=== PATIENT | male | born 1950 | race Caucasian/White ===

== ENCOUNTER → 2022-07-22 11:49 | Outpatient (CLI) | payer MEDICARE, OTHER, SELFPAY ==
--- NOTE | 2022-07-22 | DI.MRI.S_ITS ---
PROCEDURE: MR CERVICAL SPINE WO CON INDICATIONS: Spondylosis without myelopathy or radiculopathy, cervical region TECHNIQUE: Noncontrast sagittal T1 spin echo and T2 fast spin echo, sagittal STIR, foraminal oblique sagittal T2 fast spin echo, and axial gradient echo or T2 fast spin echo through the cervical spine. COMPARISON: [facility], CR, XR CERVICAL SPINE WITH FLEXION EXTENSION, 07/15/2022, 7:48. [facility], CT, CT CERVICAL SPINE WITHOUT CONTRAST, 07/11/2022, 7:46. FINDINGS: Image quality: Excellent. Alignment and Curvature: There is exaggerated cervical curvature. There is trace anterolisthesis of C3 on C4, C4 on C5. Bone Marrow: Marrow demonstrates normal overall signal. Spinal Cord: Visualized spinal cord has normal size and signal. No cerebellar tonsillar herniation. Paraspinous Soft Tissues: No paravertebral masses. Prevertebral soft tissues are normal in thickness. Discs: Multilevel moderate to severe disc desiccation. C2-C3: No disc bulge or spinal stenosis. Minimal bilateral foraminal narrowing with uncovertebral hypertrophy C3-C4: Mild disc bulge with otva-ky-xqovhsec spinal stenosis. Severe right and moderate to severe left foraminal narrowing with uncovertebral hypertrophy. C4-C5: Mild disc bulge with moderate spinal stenosis. Moderate to severe bilateral foraminal narrowing with uncovertebral hypertrophy. C5-C6: Mild disc bulge with gmii-yw-sexywqba spinal stenosis. Severe right and moderate to severe left foraminal narrowing with uncovertebral hypertrophy. C6-C7: Mild disc bulge with moderate spinal stenosis. Severe right and moderate left foraminal narrowing with uncovertebral hypertrophy. C7-T1: Minimal disc bulge without spinal stenosis. Xmaj-ap-wnmeuusb bilateral foraminal narrowing with uncovertebral hypertrophy. IMPRESSION: Multilevel disc bulges. Multilevel foraminal narrowing severe at C3-4, C5-6 and C6-7 secondary to uncovertebral arthropathy. Multilevel spinal stenosis most severe at C4-5 and C6-7 secondary to disc bulge. Dictated by: Marilou Huitron M.D. on 07/22/2022 at 16:29 Approved by: Marilou Huitron M.D. on 07/22/2022 at 16:32
== END ==
PROVIDERS: Referring Provider Orthopaedic Surgery Orthopaedic Surgery of the Spine; Visit Provider Orthopaedic Surgery Orthopaedic Surgery of the Spine
DX: M47.812 Spondylosis without myelopathy or radiculopathy, cervical region (principal); M48.02 Spinal stenosis, cervical region; M50.31 Other cervical disc degeneration, high cervical region
CPT/HCPCS: 72141

== ENCOUNTER → 2022-08-15 09:27 | Outpatient (CLI) | payer MEDICARE, OTHER, SELFPAY ==
[2022-08-15 10:53] LABS: Add Manual Diff / Slide Review NO; Basophils Absolute Auto 0 /uL (0-100); Basophils Percent Auto 0.7 % (0-2); Eosinophils Absolute Auto 200 /uL (0-450); Eosinophils Percent Auto 3.1 % (2-4); Hematocrit 43.2 % (41-53); Lymphocytes Absolute Auto 1900 /uL (1100-4500); Lymphocytes Percent Auto 27.9 % (25-40); Mean Corpuscular HGB Conc 34.7 % (30-36); Mean Corpuscular Hemoglobin 31.3 PG (26-34); Mean Corpuscular Volume 90.3 fL (80-100); Monocytes Absolute Auto 800 /uL (0-900); Monocytes Percent Auto 11.4 % (3-14); Neutrophils Absolute Auto 3800 /uL (1500-7000); Neutrophils Percent Auto 56.9 % (50-75); Platelet Count 198 X10^3/uL (150-400); Red Blood Cell Count 4.79 X10^6/uL (4.5-5.9); Red Cell Distribution Width 13.2 % (11.6-14.8); White Blood Cell Count 6.7 X10^3/uL (4.5-11.0)
[2022-08-15 11:08] LABS: BUN Creatinine Ratio 16.5 (6-22); Blood Urea Nitrogen 19 mg/dL (9-20); Calcium 9.2 mg/dL (8.4-10.2); Carbon Dioxide 30 mmol/L (22-32); Chloride 104 mmol/L (98-107); Estimated Glomerular Filt Rate > 60 mL/min (>60); Glucose 118 mg/dL (80-110); HEMOLYSIS < 15 (0-50); Potassium 4.8 mmol/L (3.4-5.1); Sodium 139 mmol/L (137-145)
== END ==
PROVIDERS: Referring Provider Orthopaedic Surgery Orthopaedic Surgery of the Spine; Visit Provider Orthopaedic Surgery Orthopaedic Surgery of the Spine
DX: Z01.818 Encounter for other preprocedural examination (principal); Z01.812 Encounter for preprocedural laboratory examination
CPT/HCPCS: 36415; 80048; 85025; 93005

== ENCOUNTER 2022-09-15 11:21 | Inpatient (IN) | payer MEDICARE, OTHER, SELFPAY ==
[2022-09-10 11:47] VITALS: BMI 31.3
[2022-09-15] VITALS (10 sets, daily range): BP systolic 138–162; BP diastolic 65–89; PULSE 77–94; RESP 12–21; TEMP 36.2–36.5; O2SAT 90–98; BMI 31.3
[2022-09-15] MEDS: ACETAMINOPHEN 325 MG TABLET 975 MG PO (11:42)
[2022-09-15] MEDS: GABAPENTIN 600 MG TABLET PO (11:43)
[2022-09-15] MEDS: LACTATED RINGERS 1,000 ML 42 ML IV ×2 (11:44→15:22)
[2022-09-15 11:57] LABS: COVID19 -Nasal RAPID Negative (Negative)
--- NOTE | 2022-09-15 12:28 | PM.PREOP ---
Pre-operative Note COVID-19 COVID-19 status: Negative Result date/Date tested (Pos, Neg/Pending): 09/14/22 Criteria for continued procedure: Expected advancement of disease process, Possibility delay results in more complex future surgery or treatment, Increased loss of function, Continuing or worsening of significant or severe pain, Deterioration of the patient's condition or overall health and Delay expected to result in less-positive ultimate med/surg outcome Interval Note History & Physical reviewed/Exam performed by Physician: Yes Changes to H&P: No
[2022-09-15] MEDS: CEFAZOLIN 2 GM/100 ML PREMIX 100 ML IV ×2 (13:10→21:15)
--- NOTE | 2022-09-15 13:34 | SUR.OPER ---
Supine on padded OR bed, head on gel donut, arms padded and tucked at sides, papoose with draw sheet and secured by towel clamps, legs uncrossed, safety belt at thigh. Shoulders and head distracted with tape per Dr. Johnson
[2022-09-15] MEDS: BUPIVACAINE 0.25% INJ (13:58)
[2022-09-15] MEDS: EPINEPHRINE 0.3 MG INJ (13:58)
--- NOTE | 2022-09-15 16:20 | DI.RAD.S_ITS ---
PROCEDURE: XR CERVICAL SPINE 2V OR 3V INDICATIONS: C4-5, C5-6, C6-7 ACDF TECHNIQUE: 2 intraoperative fluoroscopic view(s) of the cervical spine were acquired. COMPARISON: None. FINDINGS: Intraoperative fluoroscopic images of cervical spine shows anterior fusion at C4-5 through C6-7 levels . IMPRESSION: Fluoro guidance was provided intraoperatively for anterior fusion at C4-5 through C6-7 levels. Dictated by: Rocky Hannah M.D. on 09/15/2022 at 16:37 Approved by: Rocky Hannah M.D. on 09/15/2022 at 16:38
--- NOTE | 2022-09-15 16:28 | PM.OP.1 ---
Operative Date/Time/Diagnoses Date of procedure: 09/15/22 Time of procedure: 13:00 Pre-op diagnosis: 1. C4-5, C5-6, C6-7 spinal stenosis 2. C4-5, C5-6, C6-7 spondylosis with radiculopathy Post-op diagnosis: same Procedure & Clinicians Procedure: 1. C4-5 C5-6 C6-7 anterior cervical diskectomy and fusion 2. C4-5 C5-6 C6-7 anterior interbody cage placement 3. C4-5 C5-6 C6-7 anterior instrumentation with plate and screw placement in C4-C5-C6 and C7 vertebrae 4. Utilization of microsurgical technique and operating microscope Same procedure as scheduled: Yes Indications: Patient has been having chronic neck pain and worsening cervical radiculopathy. Patient failed multiple conservative management with worsening pain weakness and numbness in her upper extremity. Patient has been having difficulty performing activity of daily living. After discussing risks benefits of treatment options, patient elected proceed with surgery. Surgeon: Kayla Johnson Irrigation Equipment Installer: Uyen Miguel Click Yes if Unassisted: No Anesthesia Type: General Operative Notes Closure Type: primary Specimen(s): none sent Prosthetic devices, grafts, tissues, transplants, or devices: Globus Extend Plate, Hedron C cages Applied: catheter Estimated Blood Loss (mL): 10 Blood products transfused: none Procedure in detail: Patient was seen in the preoperative area. Risks and benefits of the surgery was discussed with the patient. Operative consent was obtained and placed in the chart. Patient was then taken to the operative room. Prophylactic antibiotic was given less than 0.5 hr prior to skin incision. General anesthesia was administered. Patient was placed into a supine position on her radiolucent table. Bilateral shoulders were taped down to allow proper C-arm imaging. Anterior cervical area was prepped and draped in a sterile fashion. Time-out was performed at this time. Using lateral C-arm imaging, the level between C4 and C7 was identified and marked on patient's neck. A oblique incision from midline towards medial border of sternocleidomastoid muscle was made. The platysma muscle was incised in line with skin incision. Metzenbaum scissor was used to develop the plane between the medial border of sternocleidomastoid and the strap muscles medially. The carotid sheath and its contents were identified and protected behind the hand-held retractor during the entire case. The plane between the carotid sheath and strap muscles was developed with Metzenbaum scissors. Dissection was made down to the level of the anterior cervical fascia. Longus colli muscle was incised on the anterior aspect of vertebral bodies bilaterally from C4-C7. Spinal needle was placed into the C4-5 disc space and confirmed with lateral C-arm imaging. Self-retaining retractors were then placed protecting the carotid sheath the sheath laterally and the esophagus medially while exposing the surgical field between C4-C7 vertebrae. Using microsurgical technique and operative microscope, anterior cervical diskectomy was performed at C4-5 C5-6 and C6-7 level. This was done by removing the disc material, removing the anterior and posterior osteophytes posterior longitudinal ligaments along with performing bilateral foraminotomies at all 3 levels. Patient was found to have severe central and foraminal stenosis at all 3 levels. Patient's stenosis was fully decompressed after decompression was completed. After the diskectomy was completed, 3 anterior interbody cages were obtained. The cages were packed with globus DBM bone grafting material. One cage each along with the bone grafting material was then packed into the interbody spaces from C4-C7 with one cage into each interbody level. Patient had large anterior osteophytes at C4, C5-C6 and C7 vertebrae. Large osteophytes was removed using Leksell rongeur in order to place anterior cervical plate. After the cages were placed, the anterior cervical plate was stabilized to the C4-C7 vertebrae using 2 screws at each each level. Total 8 screws were placed. After confirming placement of the hardware with AP and lateral C-arm imaging, the screws were locked into the plate using the locking mechanism and torque limiting screwdriver. After the hardware was placed and confirmed with AP and lateral C-arm imaging, the wound was irrigated with sterile normal saline. Hemostasis was accomplished using bipolar cautery. Carotid sheath contents and the esophagus was inspected and visualized and identified to be well protected throughout the entire case prior to closure. Platysma muscle and the subcutaneous tissue was closed with 2-0 Vicryl. The skin was closed with 4-0 Monocryl and Steri-Strips. Patient tolerated the procedure well. Patient was transferred recovery room in stable condition. There were no complications. Complications: none Post-operative Condition: stable Disposition: PACU Plan for aftercare: Admit to inpatient hospital
[2022-09-15] MEDS: MELOXICAM 7.5 MG TABLET 15 MG PO (18:14)
[2022-09-15] MEDS: LACTATED RINGERS 1,000 ML 125 ML IV (18:15)
--- NOTE | 2022-09-15 18:50 | PC.NURSE ---
Patient is resting comfortably. He has a dressing to his anterior cervical neck region that is cdi, offered pain medication but he refuses. Given meloxicam, explained to patient that this is an antiinflammatory and he was good with taking this. He is on LR at 125cc/hr and tolerating this well. When he converses his throat does sound slightly soar. Patient lives in [facility] and has a daughter that lives close. He decided to have his surgery done here. He refused dinner and states that he is not hungry. SCDs intact and patient is comfortable.
[2022-09-15] MEDS: MAGNESIUM OXIDE 400 MG TABLET PO (20:56)
[2022-09-15] MEDS: ACETAMINOPHEN 325 MG TABLET 650 MG PO (20:56)
[2022-09-15] MEDS: DOCUSATE 100 MG CAPSULE PO (20:56)
[2022-09-15] MEDS: LOSARTAN 50 MG TABLET PO (20:56)
[2022-09-15] MEDS: SENNOSIDES 8.6 MG TABLET 17.2 MG PO (20:56)
[2022-09-16 00:53] VITALS: BP 119/68; PULSE 95; RESP 18; TEMP 36.4; O2SAT 94
[2022-09-16] MEDS: LACTATED RINGERS 1,000 ML 125 ML IV (03:02)
[2022-09-16 04:58] VITALS: BP 119/72; PULSE 74; RESP 18; TEMP 36.5; O2SAT 96
[2022-09-16] MEDS: CEFAZOLIN VIAL 2 GM in SODIUM CHLORIDE 0.9% 100 ML IV (05:09)
--- NOTE | 2022-09-16 07:45 | P.PN_ITS ---
Subjective Subjective Date Patient Seen: 09/16/22 Time Patient Seen: 07:45 Interval history: Patient's pain is mild. Denies fever or chills. No nausea or vomiting. Patient denies any shortness of breath or difficulty swallowing. Exam Vital Signs (past 8 hours): - 09/16/22 00:53 09/16/22 04:58 Temperature 97.6 F 97.7 F Pulse Rate 95 H 74 Respiratory Rate 18 18 Blood Pressure 119/68 119/72 Pulse Oximetry 94 96 Oxygen Flow Rate 0 0 Oxygen Delivery Method Room Air Oxygen Flow Rate 0 Narrative Exam Narrative: 72-year-old male resting comfortably in bed in no apparent distress. Cervical collar in place. Motor functions intact distal bilateral upper extremities. Sensation grossly intact to light touch bilateral upper extremities. Const General: cooperative and comfortable Nutritional Appearance: well nourished Orientation: alert HENMT Head: normal to inspection Resp Effort & Inspection: normal respiratory effort and able to speak in complete sentences Objective Labs Labs: Laboratory Results - last 24 hr 09/15/22 11:20 SARS-CoV-2 (PCR) Negative [facility] Medical History Anxiety Borderline diabetic Elevated cholesterol History of COVID-19 HTN (hypertension) Neck pain Skin cancer Spinal stenosis Spondylosis without myelopathy or radiculopathy, cervical region Surgical History Hx of arthroscopy of right knee Hx of bilateral cataract extraction Hx of repair of right rotator cuff Hx of umbilical hernia repair Social History household members: none Smoking Status: Never smoker alcohol intake: current Assessment & Plan Post-op Postoperative Procedures: Procedures Operation Date: 09/15/22 13:45 Actual Procedure Side Surgeon p C4-5, C5-6, C6-7 ACDF w. anterior instrumentation Kayla Johnson MD Postoperative day: 1 Postoperative status: doing well Postoperative status narrative: Progressing as expected Postoperative plan: routine post-op care Postoperative plan narrative: Cervical collar for comfort Mobilize with physical therapy, limit bending, lifting, twisting Multimodal pain management Discontinue Henriquez Likely home later this morning pending physical therapy. Quality VTE Deep Vein Thrombosis/Pulmonary Embolism Present on Admission: No
--- NOTE | 2022-09-16 07:45 | PC.NURSE ---
Patient is alert and oriented x4, he denies pain. Just a soar throat. We will be taking his hercules catheter out shortly and he has already been saline locked. Dressing to anterior throat is cdi. 0 drainage noted. Denies numbness or tingling.
[2022-09-16 08:14] VITALS: BP 138/75; PULSE 74
[2022-09-16] MEDS: LOSARTAN 50 MG TABLET PO (08:14)
[2022-09-16] MEDS: DOCUSATE 100 MG CAPSULE PO (08:15)
[2022-09-16 08:48] VITALS: BP 138/75; PULSE 81; RESP 18; TEMP 36.7; O2SAT 94
--- NOTE | 2022-09-16 08:58 | OT.IP.EVAL ---
Current Diagnoses Spondylosis without myelopathy or radiculopathy, cervical region (09/15/22) Spinal stenosis, cervical region (09/15/22) Surgery Performed Operation Date: 09/15/22 13:45 Actual Procedures p C4-5, C5-6, C6-7 ACDF w. anterior instrumentation - Kayla Johnson MD Past Medical History (Last Reviewed 09/16/22 @ 07:46 by Abdoul Dudley PA-C) Anxiety Borderline diabetic Elevated cholesterol History of COVID-19 HTN (hypertension) Neck pain Skin cancer Spinal stenosis Spondylosis without myelopathy or radiculopathy, cervical region Surgical History (Last Reviewed 09/16/22 @ 07:46 by Abdoul Dudley PA-C) Hx of arthroscopy of right knee Hx of bilateral cataract extraction Hx of repair of right rotator cuff Hx of umbilical hernia repair Occupational Therapy Inpatient Evaluation/Re-Eval M1 PT/OT-IP Prior Functional Status Start: 09/16/22 09:30 Freq: NEEDED Status: Active Protocol: Document 09/16/22 08:58 [facility] (Rec: 09/16/22 09:42 [facility] [id number]) Medical Review Prior Functional Status Communication independent Mobility and Gait Pt walked without a device. Activities of Daily Living and IADL's Pt able to do with increased time. Social History Household Members none Living Arrangements Other Number of Floors (Floors) One Floor Number of Stairs To Enter/Railing? Pt lives in a motel with no steps to enter. Home Environment Standard Height Toilet,Tub/ Shower Home Equipment Shower Seat with Backrest,Hand Held Shower,Grab Bars Near Toilet,Grab Bars In Shower M2 OT-IP Current Condition Start: 09/16/22 09:30 Freq: Status: Active Protocol: Document 09/16/22 08:58 [facility] (Rec: 09/16/22 09:42 [facility] [id number]) Occupational Therapy Current Condition Current Condition Evaluation Date 09/16/22 Treatment Diagnosis S/p C4-5, c5-6, c6-7 ACDF Diagnosis Onset Date 09/15/22 Post Operative Precautions Cervical Spine Precautions Soft Collar for Comfort,Soft Collar at all Times,No Heavy Lifting,Log Roll M3 OT- IP Subjective and Pain Start: 09/16/22 09:30 Freq: Status: Active Protocol: Document 09/16/22 08:58 [facility] (Rec: 09/16/22 09:42 [facility] [id number]) OT- Subjective Occupational Therapy Visit Type Type Initial Evaluation Visit Start Time 08:58 Visit Stop Time 09:22 Occupational Therapy Visit Comments Patient Comments Pt agreed to get up for OT eval. Patient/Caregiver Goals To go home. OT Pain Assessment Pain When Pain Assessed During Mobility Pain Present Pain Present Pain Reported Location Neck Intensity 1 Scale Used Numeric (0 - 10) M4 OT- IP ADL's Start: 09/16/22 09:30 Freq: Status: Active Protocol: Document 09/16/22 08:58 [facility] (Rec: 09/16/22 09:42 [facility] [id number]) OT [id number]-[id number] Comments OT Self-Feeding Comments Able to go over swallowing needs after ACDF, to sit upright, eat softer food and information sheet given to the pt. OT ADL-Grooming Comments OT Grooming Comments Pt states to do at home. OT ADL-Oral Care Comments Oral Care Comments Pt states to do at home. OT ADL-Dressing General Eval Lower Body Dressing Ability Standby Assistance Comments OT Dressing Comments Pt able to cross his legs over comfortably to do his socks. OT ADL-Toileting Comments OT Toileting Comments Pt not having to go. OT ADL-Bathing Comments OT Bathing Comments Pt states to shower at home. M5 OT- IP IADL's Start: 09/16/22 09:30 Freq: Status: Active Protocol: Document 09/16/22 08:58 [facility] (Rec: 09/16/22 09:42 [facility] [id number]) OT-Instrumental Activities of Daily Living Home Safety Awareness Awareness of Need for Assistance at Home Good Awareness Ability to Problem Solve Emergency Able to Problem Solve Situations Home Safety Comments Pt has a supportive daughter that lives close by to assist if needed. M6 OT- IP Functional Cognition Start: 09/16/22 09:30 Freq: Status: Active Protocol: Document 09/16/22 08:58 [facility] (Rec: 09/16/22 09:42 [facility] [id number]) Cognitive Factors Limiting Selfcare Function Cognitive Ability Level of Alertness Alert Patient Orientation Name,Age,Birthday,Month,Date, Year,Day of Week,Place, Situation Attention Span Ability Capable of Focused Attention, Capable of Sustained Attention Ability to Follow Commands Able to Follow Multi-Step Commands Cognitive Comments Cognitive Assessment Comments Pt appears intact but tends to move a little too fast and needing cues to slow down. OT- Vision and Hearing OT- Hearing Assessment OT- Hearing Assessment WFL OT- Vision Assessment Visual Acuity Glasses For Reading M7 OT- IP Mobility and Balance Start: 09/16/22 09:30 Freq: Status: Active Protocol: Document 09/16/22 08:58 [facility] (Rec: 09/16/22 09:42 [facility] [id number]) OT- Bed Mobility Assessment Supine to Sit Supine to Sit Assist Standby Assistance OT-Transfer Assessment Sit to and From Stand Sit to and from Stand Standby Assistance Transfers Transfer Ability Standby Assistance Technique Transfer Destination Bed,Chair Transfer Technique Stand Step Pivot Devices Transfer Assistive Devices Gait Belt Comments Mobility Comments Pt needing initial vc for log rolling and initially tends to twist and initiate movement from his head and educated to log to his side first and use of his arms to push himself up to sitting. OT- Balance Assessment Sitting Balance and Reactions Static Sitting Balance Ability Normal Dynamic Sitting Balance Ability Good Standing Balance and Reactions Static Standing Balance Ability Normal Dynamic Standing Balance Ability Good M8 OT- IP Objective Assessments Start: 09/16/22 09:30 Freq: Status: Active Protocol: Document 09/16/22 08:58 [facility] (Rec: 09/16/22 09:42 [facility] [id number]) OT-Muscle Tone Assessment Muscle Tone WNL Yes M9 OT- IP Assessment and Plan Start: 09/16/22 09:30 Freq: Status: Active Protocol: Document 09/16/22 08:58 [facility] (Rec: 09/16/22 09:42 [facility] [id number]) OT Summary Assessment and Plan Potential Rehabilitation Potential Excellent Analytic Complexity at Evaluation Low Summary OT Impairments Pain,Balance,Functional Mobility,Dressing,Toileting, Bathing,Toilet Transfers, Shower Transfers Progress Towards Goals Progressing Toward Goals Assessment Summary Pt low complexity and at this time just getting out of bed and at the end of the session was independent without a device. Pt looking to go home to initially to order food to his motel as will not been able to drive yet . Pt is able to get breakfast at the motel. Pt's Daughter close by to assist as needed. Goals Dressing Goal Independent,Moderate Assistance Bathing Goal Independent Toilet Transfer Goal Independent Shower Transfer Goal Independent Patient/Caregiver Education Goal Demonstrate Post-Op Precautions Days to Meet Goals 1 Frequency of Treatment Frequency Of Treatment Once a Day Treatment Plan OT Treatment Plan ADL Training,Functional Mobility,Patient/Family Education,Discharge Planning Discharge Recommendations OT Discharge Recommendations Home with Assistance Transportation Needs at Discharge Private Vehicle
--- NOTE | 2022-09-16 09:07 | CM.DANOTE ---
DCP: Case received, EMR reviewed and met with patient. Introduced self and role. Was able to obtain information regarding patient's baseline activity status prior to hospitalization, as well as his current living situation. DCP assessment completed with information currently available. Patient is a 72 year old male who admitted yesterday morning to the care of the orthopedic team. PCP: Dr. Rust. Payer: confirmed: Medicare/[facility]. Patient came to the hospital via private vehicle for a surgical procedure. Patient had C4-5 C5-6 C6-7 anterior cervical diskectomy and fusion. Patient has history of spinal stenosis. Met with patient in his room. He is alert and oriented, pleasant. Confirmed that he resides in a motel here in [place], his daughter, Josi Peace, lives nearby. Patient resides in [facility]. He does have a local provider. Stated, he gets plenty of support from daughter, as well as the staff at the motel. He is independent at his baseline. He is planning on returning back to [facility]. P: DCP to continue to follow. He will be working with P.T. Plan is for home when deemed medically stable. Gila Harris RN/Clip Baker Discharge Planning/Care Management CM Discharge Assessment Start: 09/16/22 09:06 Freq: Status: Active Protocol: Document 09/16/22 09:07 (Rec: 09/16/22 09:07 [id number]) Discharge Planning Assessment Assigned Admissions Assistant Gila Harris RN/Clip Baker Advance Directives? No History Provided By Patient,Medical Record Prior Living Arrangements Other Household Members none Independent with ADL's Yes Is patient alert and oriented? Yes Caregiver for Another No Barriers to Discharge No Discharge Plan Home Transportation Arrangement Daughter or may need taxi Referrals Initiated None needed Whiteboard Updated in Patient Room with Yes name and ext. # of Admissions Assistant Review Status In Process Next Review Type Continued Stay Review Pre-Anesthesia Assessment Start: 09/10/22 11:47 Freq: Status: Complete Protocol: Document 09/10/22 11:47 CAB (Rec: 09/10/22 12:30 CAB [id number]) Pre-Anesthesia Assessment Preferred Name Kosta Patient Information Reviewed Via Phone Assessment Assessment Completed With Patient Diagnostic Results BMP/CMP,CBC,EKG Comment Labs/EKG @ [facility] 08/15/22 Primary Care Provider Td Rust Seen Specialist in Last 12 Months Yes Specialist Seen Orthopedist,Other Comment Neuro surgeon Primary Language Israeli Height 5 ft 6.5 in Weight 197 lb Body Mass Index (BMI) 31.3 Hearing Ability Normal Visual Assist Glasses Dentition Type Teeth, Natural Present,Teeth, Missing Barriers to Learning None Hx Anesthesia Reactions No Hx Family Anesthesia Reaction No Hx Malignant Hyperthermia No Hx Blood Transfusions No Anesthesia Review Requested No Auto Winder No alcohol intake current alcohol intake frequency a few times a week Smoking Status Never smoker Substance Use Type does not use Pain Present Pain Reported Musculoskeletal Symptoms Limited Range of Motion,Neck Pain,Radiating Pain into Limb History of Falling (Recent or History of No ) Patient is completely paralyzed or No completely immobile Mental Status Oriented to own ability Is patient on oxygen? No Does patient have PONCE/SOB No Hx Sleep Apnea No Currently Taking a Beta Kumar No Can You Climb a Flight of Stairs Without Yes SOB Hx Chest Pain No Hx SOB No Hx Syncope or Dizziness No Anti-Coagulant Therapy No Has a Rn Nicu No Cardiac Testing No Hx Pacemaker/ICD No Pacemaker Rep Required? 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 Yes Received all doses? No Marital Status Single Lives With none Current Living Arrangements Other Comment Plans to stay in [facility] in [place] after surgery, lives in [facility] Number of Floors (Floors) One Floor Support System Family Does the Patient Have Assistance After Yes Surgery Patient Discharge Plan Description Other Comment Pt advised overnight length of stay per surgeon Additional comment Plans to stay in [facility] in [place] after surgery, lives in [facility] Feels Safe in Current Environment Yes Been Physically Hurt or Threatened By a No Person in Current Environment Do you have thoughts of harming yourself None or others? Are you currently considering suicide? No Do you have a plan to hurt yourself or No Plan others? Do You Have Any Spiritual Beliefs That No May Affect Your HC Choices? Do You Have Any Cultural Practices That No May Affect Your HC Choices? Comment Agnostic Who Can We Speak to About Patient's Care Family, friends Identifying Code for Release of Patient Declines to issue Information Health Care Proxy/Next of Kin Josi (daughter) Health Care Proxy Emergency Contact Name Josi (daughter) Emergency Contact Advance Directives? No Power of Back Shoe Worker No Power of Back Shoe Worker Name Josi (daughter) Power of Back Shoe Worker PAC Instructions Durable medical equipment, Medications to take/avoid, Nasal antibiotic,No ETOH/ petroleum product on skin DOS, NPO,Pre-surgical wash,Sensory aids,Sturdy shoes/comfortable clothes,Do not bring valuables and remove jewelry
--- NOTE | 2022-09-16 11:04 | P.DS_ITS ---
History of Present Illness History of Present Illness Date Patient Seen: 09/16/22 Time Patient Seen: 11:04 Chief complaint: INPT Narrative: See progress note Discharge Providers Provider Date of admission: 09/15/22 11:21 Discharge Date: 09/16/22 Primary care physician: Td Rust Consults: 09/15/22 17:21 Consult to Occupational Therapy Evaluate & Treat Comment: Physician Instructions: Evaluate and treat Consult to Physical Therapy Evaluate & Treat Comment: Physician Instructions: Evaluate and Treat Discharge provider: Abdoul Dudley PA-C Summary Hospital Course Discharge Diagnosis: . C4-5, C5-6, C6-7 spinal stenosis 2. C4-5, C5-6, C6-7 spondylosis with radiculopathy Hospital Course: 1.? C4-5 C5-6 C6-7 anterior cervical diskectomy and fusion 2.? C4-5 C5-6 C6-7 anterior interbody cage placement 3.? C4-5 C5-6 C6-7 anterior instrumentation with plate and screw placement in C4-C5-C6 and C7 vertebrae 4.? Utilization of microsurgical technique and operating microscope Same procedure as scheduled: Yes Indications: Patient has been having chronic neck pain and worsening cervical radiculopathy. Patient failed multiple conservative management with worsening pain weakness and numbness in her upper extremity.? Patient has been having difficulty performing activity of daily living.? After discussing risks benefits of treatment options, patient elected proceed with surgery. Surgeon: Kayla Johnson [employer] Supervisor: Uyen Miguel Click Yes if Unassisted: No Anesthesia Type: General Operative Notes Closure Type: primary Specimen(s): none sent Prosthetic devices, grafts, tissues, transplants, or devices: Globus Extend Plate, Hedron C cages Applied: catheter Estimated Blood Loss (mL): 10 Blood products transfused: none Patient admitted to the hospital for the above-mentioned procedure. Patient underwent cervical fusion September 15, 2022. Patient back in his room recovering well as in stable condition. Henriquez catheter removed this morning. Patient has worked with physical therapy and did well. Patient has somebody at home available to assist him. Patient may be discharged home today after he is able to urinate on his own. Status at Discharge Cognitive/behavioral status at discharge: at baseline, oriented Functional status at discharge: independent ambulation Overall status at discharge: patient is progressing back to baseline Exam Vital Signs (past 8 hours): - 09/16/22 04:58 05/02/23 08:14 09/16/22 08:48 Temperature 97.7 F 98.1 F Pulse Rate 74 74 81 Respiratory Rate 18 18 Blood Pressure 119/72 138/75 138/75 Pulse Oximetry 96 94 Oxygen Flow Rate 0 0 Oxygen Delivery Method Room Air Oxygen Flow Rate 0 Narrative Exam Narrative: See progress note Objective Labs Labs: Laboratory Results - last 24 hr 09/15/22 11:20 SARS-CoV-2 (PCR) Negative [facility] Medical History Anxiety Borderline diabetic Elevated cholesterol History of COVID-19 HTN (hypertension) Neck pain Skin cancer Spinal stenosis Spondylosis without myelopathy or radiculopathy, cervical region Surgical History Hx of arthroscopy of right knee Hx of bilateral cataract extraction Hx of repair of right rotator cuff Hx of umbilical hernia repair Social History household members: none Smoking Status: Never smoker alcohol intake: current Discharge Assessment & Plan Assessment and Plan Assessment: Patient progressing as expected status post C4-C5, C5-C6, C6-C7 fusion Plan of Treatment: Soft collar for comfort Limit bending, twisting, lifting Multimodal pain management And discharge home today able to urinate on his own. Discharge Plan Discharge Plan Patient Disposition: Home Discharge orders & Medications Prescriptions: New acetaminophen 325 mg Tablet 650 mg PO Q6H PRN (Reason: Fever/Mild Pain (1-3)) Qty: 60 0RF docusate sodium 100 mg Capsule 100 mg PO BID Qty: 20 0RF oxycodone 5 mg Tablet 5 mg PO Q3H PRN (Reason: Pain, Moderate (4-6)) Qty: 40 0RF hydroxyzine pamoate 25 mg Capsule 25 mg PO Q4HR PRN (Reason: Nausea And Vomiting) Qty: 20 0RF Continued losartan 100 mg tablet 50 mg PO BID clonazepam 0.5 mg Tablet 0.25 mg PO DAILY PRN (Reason: Anxiety) Rx Instructions: administer 30 minutes before bedtime magnesium citrate,mag oxide 250 mg Capsule 500 mg PO BEDTIME Discontinued meloxicam 15 mg Tablet 15 mg PO QPM acetaminophen 500 mg Tablet 500 mg PO BEDTIME Advil PM 200-38 mg Tablet 1 cap PO BEDTIME PRN (Reason: Sleep) Follow up/Referrals: Kayla Johnson MD [Physician] - (Two weeks as scheduled) Td Rust [Primary Care Provider] - Diet/Activity/Treatments Diet: Diet as Tolerated Activity: Limit bending, twisting, lifting Other treatments: Soft collar for comfort Skin/Wound/Dressing Care Report to your healthcare provider any signs of infection, such as:: chills, fever, night sweats, increased pain, unusual drainage and unusual redness Dressing: Keep dressing clean and dry Visit Report/Discharge Packet Instructions: DI for Prescription Opioid Use, DI for Anterior Cervical Discectomy and Fusion Stand Alone Forms: Patient Portal/API, Stroke Signs & Symptoms, Surgery Discharge Discharge Data Primary Care Provider: Td Rust Quality VTE Deep Vein Thrombosis/Pulmonary Embolism Present on Admission: No
--- NOTE | 2022-09-16 11:56 | PT.IIE ---
Current Diagnoses Spondylosis without myelopathy or radiculopathy, cervical region (09/15/22) Spinal stenosis, cervical region (09/15/22) Surgery Performed Operation Date: 09/15/22 13:45 Actual Procedures p C4-5, C5-6, C6-7 ACDF w. anterior instrumentation - Kayla Johnson MD Surgical History (Last Reviewed 09/16/22 @ 11:06 by Abdoul Dudley PA-C) Hx of arthroscopy of right knee Hx of bilateral cataract extraction Hx of repair of right rotator cuff Hx of umbilical hernia repair Medical History (Last Reviewed 09/16/22 @ 11:06 by Abdoul Dudley PA-C) Anxiety Borderline diabetic Elevated cholesterol History of COVID-19 HTN (hypertension) Neck pain Skin cancer Spinal stenosis Spondylosis without myelopathy or radiculopathy, cervical region Physical Therapy Inpatient Evaluation/Re-Eval M1 PT/OT-IP Prior Functional Status Start: 09/16/22 09:30 Freq: NEEDED Status: Active Protocol: Document 09/16/22 11:47 ES (Rec: 09/16/22 11:56 ES [id number]) Medical Review Prior Functional Status Medical History Reviewed Yes Communication independent Mobility and Gait Pt walked without a device. Activities of Daily Living and IADL's Pt able to do with increased time. Social History Household Members none Living Arrangements Other Number of Floors (Floors) One Floor Number of Stairs To Enter/Railing? 0 Home Environment Standard Height Toilet,Tub/ Shower Employment Status Retired Additional Social History Comment Lives in [facility] in various hotels long-term. Has been staying in a motel here in town for the past month and plans to stay for the next 6 weeks. Has a daughter who lives near the motel. Patient gets around town mostly by walking. Eats breakfast at the motel, and walks to restaurants or orders out for other meals. M2 PT-IP Current Condition Start: 09/16/22 11:45 Freq: NEEDED Status: Active Protocol: Document 09/16/22 11:47 ES (Rec: 09/16/22 11:56 ES [id number]) Physical Therapy Current Condition Current Condition Evaluation Date 09/16/22 Treatment Diagnosis s/p C4-5, C5-6, C6-7 ACDF Onset Date 09/15/22 M3 PT-IP Subjective Start: 09/16/22 11:45 Freq: NEEDED Status: Active Protocol: Document 09/16/22 11:47 ES (Rec: 09/16/22 11:56 ES [id number]) Subjective Physical Therapy Visit Type Type Initial Evaluation Visit Start Time 10:29 Visit Stop Time 10:43 Total Visit Minutes 14 Physical Therapy Visit Comments Patient Comments Patient up in chair, reading on his tablet. Patient agreeable to walk with therapy . Reported that sitting feels much better on his neck now than prior to surgery. He declined pain meds prior to working with PT. Patient reported his pain is mostly in his throat. Patient Goals To go back to the hotel to recover with the goal of returning to [place] in 6 weeks. Therapy Pain Assessment Pain When Pain Assessed During Mobility Pain Present Pain Present Pain Reported Location Neck Intensity 1 Scale Used Numeric (0 - 10) M4 PT-IP Mobility and Gait Start: 09/16/22 11:45 Freq: NEEDED Status: Active Protocol: Document 09/16/22 11:47 ES (Rec: 09/16/22 11:56 ES [id number]) PT-Bed Mobility Assessment Rolling Type of Rolling Log Rolling Level of Assist Independent Supine to Sit Supine to Sit Independent Sit to Supine Sit to Supine Independent Scooting Scooting to Edge of Bed Independent Scooting Up and Down in Bed Independent PT-Transfer Assessment Sit to and From Stand Sit to and from Stand Independent Equipment Transfer Assistive Device None Orthotic/Prosthetic Devices or Brace: Yes Transfers Transfer Destination Bed,Chair Transfer Technique Stand Step Pivot Transfer Ability Level of Assist Independent Comments Mobility Comments Wearing soft collar throughout visit Gait Assessment Gait Gait Assistance Required: Independent Distance (Feet) 250 Assistive Devices Assistive Device None Orthotic/Prosthetic Devices or Brace: Yes Gait Deviations General Gait Pattern Within Normal Limits Comments Gait Comments Wearing soft collar throughout . Stair Climbing Assessment Comments Stair Climbing Comments No stairs at baseline; would be independent based on other mobility. PT-Balance Assessment Sitting Balance and Reactions Static Sitting Balance Ability Normal Dynamic Sitting Balance Ability Normal Standing Balance and Reactions Static Standing Balance Ability Normal Dynamic Standing Balance Ability Normal Device Used None M5 PT-IP Objective Assessments Start: 09/16/22 11:45 Freq: NEEDED Status: Active Protocol: Document 09/16/22 11:47 ES (Rec: 09/16/22 11:56 ES [id number]) Orientation Orientation/Cognition Level of Alertness Alert Orientation Name,Age,Birthday,Month,Date, Year,Day of Week,Place, Situation Language Function Ability No Deficits Noted Safety Awareness Understands Safety Issues Memory Description No Deficits Noted Gross Range of Motion Upper Extremity ROM Assessment Within Functional Limits Lower Extremity ROM Assessment Within Functional Limits Strength Upper Extremity Strength Assessment Within Functional Limits Lower Extremity Strength Assessment Within Functional Limits Coordination Assessment Gross Coordination Gross Coordination WNL M6 PT-IP Treatment Start: 09/16/22 11:45 Freq: NEEDED Status: Active Protocol: Document 09/16/22 11:47 ES (Rec: 09/16/22 11:56 ES [id number]) Physical Therapy Treatment Education Education Provided Precautions,Post-Op Packet, Safety M7 PT-IP Assessment and Plan Start: 09/16/22 11:45 Freq: NEEDED Status: Active Protocol: Document 09/16/22 11:47 ES (Rec: 09/16/22 11:56 ES [id number]) PT Summary Assessment and Plan Potential Rehabilitation Potential Excellent Status of Condition at Evaluation Stable Summary Assessment Summary Patient is a 72 year old male s/p C4-5, 5-6, 6-7 ACDF who presents at independent level for all mobility with well- managed pain and low fall risk . Patient demonstrated good understanding of post-op precautions and instructions. He is appropriate to d/c to his motel at this time; no further skilled PT indicated. Frequency of Treatment Frequency Of Treatment Discharge Precautions Cervical Spine Precautions Soft Collar for Comfort,No Heavy Lifting,Log Roll Other Precautions Limit bending and twisting Recommendations To Nursing Amount of Assist Needed Independent Discharge Recommendations PT Discharge Recommendations Home Transportation Needs at Discharge Private Vehicle
== END 2022-09-16 13:34 | disposition home or self-care (01) | DRG 473 ==
PROVIDERS: Admitting Provider Orthopaedic Surgery Orthopaedic Surgery of the Spine; PCP Family Medicine; Referring Provider Orthopaedic Surgery Orthopaedic Surgery of the Spine; Visit Provider Orthopaedic Surgery Orthopaedic Surgery of the Spine
PROC: 0RG20A0 Fusion of 2 or more Cervical Vertebral Joints with Interbody Fusion Device, Anterior Approach, Anterior Column, Open Approach (ICD-10-PCS; principal; 2022-09-15 13:45)
DX: M48.02 Spinal stenosis, cervical region (principal); M47.22 Other spondylosis with radiculopathy, cervical region; F41.9 Anxiety disorder, unspecified; I10 Essential (primary) hypertension; Z20.822 Contact with and (suspected) exposure to COVID-19
CPT/HCPCS: 72040; 76000; 87635; 97161; 97165; 97530; C9803; C1713; J0171; J0690; J1100; J2405; J2704; J3010

== ENCOUNTER 2022-09-17 08:12 | Emergency (ER) | payer MEDICARE, OTHER, SELFPAY ==
[2022-09-15 11:24] VITALS: BMI 31.3
[2022-09-17] VITALS (14 sets, daily range): BP systolic 138–164; BP diastolic 63–82; PULSE 71–85; RESP 15–24; TEMP 36.9; O2SAT 93–98; BMI 27.3
--- NOTE | 2022-09-17 08:45 | DI.CT.S_ITS ---
PROCEDURE: CT CERVICAL SPINE WO CON INDICATIONS: Post op day [address] Lu. Antoine t-1. Pt. cant swallow TECHNIQUE: Noncontrast 3 mm thick sections acquired from the skull base to the T4 level. Sagittal and coronal reformats were then constructed. For radiation dose reduction, the following was used: automated exposure control, adjustment of mA and/or kV according to patient size. COMPARISON: None. FINDINGS: Image quality: Excellent. Bones: No acute fractures or dislocations. There are postsurgical changes from anterior cervical discectomy infusion from C4 through C7. No evidence to suggest acute hardware complication. Multilevel cervical spondylitic changes. Visualized superior ribs are intact. Soft tissues: There are postsurgical soft tissue changes involving the left anterior neck with locules of gas anterior to the left sternocleidomastoid. There is also a fluid and gas collection near the surgical incision site measuring approximately 2.3 x 2.8 cm in maximum axial cross-sectional dimension. This is likely related to recent surgery. Surgical tract extends towards the anterior margin of the cervical spine at site of fusion. There is also moderate anterior prevertebral soft tissue swelling measuring up to 1.6 cm in thickness. There is associated mass effect of the adjacent airway. No apical pneumothoraces. IMPRESSION: 1. Expected postsurgical changes from recent anterior cervical discectomy and fusion of C4 through C7 with suspected postsurgical fluid collection anterior to the left sternocleidomastoid and small amount of edema extending along the surgical site. No acute fracture or dislocation. No evidence for acute hardware complication. 2. Moderate prevertebral soft tissue swelling anterior to the fused segments with associated narrowing/mass effect upon the adjacent airway. Findings were discussed with Dr. Kay at 0920 hrs. Dictated by: Rex Pierson M.D. on 09/17/2022 at 9:15 Approved by: Rex Pierson M.D. on 09/17/2022 at 9:26
--- NOTE | 2022-09-17 09:44 | ED_ITS ---
HPI - Fall General Chief Complaint: Fall Stated Complaint: post op T-2 (ACDF)fell Dr sent him to be checked Time Seen by Provider: 09/17/22 08:32 Source: patient Mode of arrival: Ambulatory Limitations: no limitations History of Present Illness HPI Narrative: This 72-year-old gentleman is 2 days postop falling anterior cervical fusion. He stumbled and fell yesterday, falling forward. He landed on his hands and knees. His head may object forth a bit. He does not feel there was any significant injury to the neck. He had anterior neck swelling postop from 2 days ago. Last night there may been increased swelling. He is worse. He describes swelling progressing from the left-sided neck, the surgical site to the right side of his neck. He has dysphagia. The dysphagia is new. He feels like he is breathing okay, there is no stridor. He is no chest pain, cough or dyspnea. He is talking in full sentences with hoarseness. He can not swallow a small amount of water. Related Data Home Medications Medication Instructions Recorded Confirmed losartan 100 mg tablet 50 mg PO BID 03/05/21 09/15/22 clonazepam 0.5 mg tablet 0.25 mg PO DAILY PRN Anxiety 09/10/22 09/15/22 magnesium citrate,mag oxide 250 mg 500 mg PO BEDTIME Leg cramps 09/10/22 09/15/22 capsule Previous Rx's Medication Instructions Recorded acetaminophen 325 mg tablet 650 mg PO Q6H PRN Fever/Mild Pain 09/16/22 (1-3) #60 tabs docusate sodium 100 mg capsule 100 mg PO BID #20 caps 09/16/22 hydroxyzine pamoate 25 mg capsule 25 mg PO Q4HR PRN Nausea And 09/16/22 Vomiting #20 caps oxycodone 5 mg tablet 5 mg PO Q3H PRN Pain, Moderate 09/16/22 (4-6) #40 tabs methylprednisolone 4 mg tablets in See Rx Instructions PO .COMPLEX 09/17/22 a dose pack (Medrol (Tanner)) #21 ea Allergies Allergy/AdvReac Type Severity Reaction Status Date / Time No Known Drug Allergies Allergy Verified 09/15/22 11:39 Review of Systems Review of Systems ROS Unobtainable: All systems reviewed & are unremarkable except as noted in HPI and below Constitutional Constitutional: Denies chills and Denies fever(s) ENT Ears, Nose, Mouth, and Throat: Denies vertigo, Denies dizziness, Reports dry mouth, Denies mouth pain, Reports neck pain and Denies sore throat Cardiovascular Cardiovascular: Denies chest pain, Denies rapid heart rate, Denies irregular heart rhythm and Denies dyspnea Respiratory Respiratory: Denies cough, Denies pain with cough and Denies dyspnea Gastrointestinal Gastrointestinal: Denies abdominal pain and Denies nausea Genitourinary Comments: No urinary complaints. Musculoskeletal Musculoskeletal: Reports neck pain Comments: Anterior neck swelling at the operative site. Integumentary/Breasts Skin/Breast: Denies lesions, Denies rash and Denies sores Neurologic Neurologic: Denies confusion, Denies vertigo and Denies dizziness Psychiatric Psychiatric: Denies confusion Hematologic/Lymphatic On Anticoagulants: No Patient History Medical History (Updated 09/17/22 @ 13:11 by Silvestre Kay MD) Anxiety Borderline diabetic Cervical vertebral fusion Elevated cholesterol History of COVID-19 HTN (hypertension) Neck pain Skin cancer Spinal stenosis Spondylosis without myelopathy or radiculopathy, cervical region Surgical History Hx of arthroscopy of right knee Hx of bilateral cataract extraction Hx of repair of right rotator cuff Hx of umbilical hernia repair Social History household members: none Smoking Status: Never smoker alcohol intake: current Smoking Status: Never smoker alcohol intake frequency: a few times a week Substance Use Type: does not use Exam Initial Vital Signs Initial Vital Signs: Vital Signs Temperature 98.5 F 09/17/22 08:21 Pulse Rate 85 09/17/22 08:21 Respiratory Rate 18 09/17/22 08:21 Blood Pressure 164/80 H 09/17/22 08:21 Pulse Oximetry 98 09/17/22 08:21 Oxygen Delivery Method Room Air 09/17/22 08:21 Const General: cooperative and healthy appearing Other: His voice is hoarse. HENMI Head: normocephalic and atraumatic Face and sinus: normal facial exam Throat: posterior oropharynx normal Eyes General: Yes appearance normal, both eyes and all related structures Neck Other: The surgical site on the left anterior neck is healing well. No erythema. No drainage. He has edema in the left anterior and right anterior neck. There is no warmth or erythema at the site. Resp Effort & Inspection: normal respiratory effort Auscultation: clear to auscultation bilaterally, no rhonchi and no wheezes Cardio Rate: regular rate Rhythm: regular rhythm Heart Sounds: S1 normal, S2 normal and no murmurs Course Course Course Narrative: Dr. Johnson, his surgeon was contacted. He reviewed the CT. AMAN Beavers, his assistant superintendent for curriculum, came back to see the patient. He is felt to have postop edema, not an appropriate amount. Dexamethasone 20 mg given IV. Patient was then able to take small sips of water. With time this improved. AMAN Beavers visit with the patient again. It was decided he could go home on a [employer] Monitoring Dosepak. He will be seen tomorrow clinic. Orders Ordered: Discontinued Medications Sodium Chloride (Normal Saline 0.9%) 1,000 mls @ 250 mls/hr IV CONT CHRISTA Last Infusion: 09/17/22 12:36 Dose: 0 mls/hr Documented By: Admin: 09/17/22 09:45 Dose: 250 mls/hr Documented By: UMESH Dexamethasone 20 mg/ Sodium (Chloride) 52 mls @ 208 mls/hr IV NOW ONE Stop: 09/17/22 09:56 Last Infusion: 09/17/22 10:38 Dose: 0 mls/hr Documented By: Admin: 09/17/22 10:18 Dose: 208 mls/hr Documented By: UMESH Vital Signs Vital signs: Vital Signs - 8 hr 09/17/22 11:30 09/17/22 11:30 09/17/22 12:00 Pulse Rate 73 Respiratory Rate 15 Blood Pressure 141/79 H 153/82 H Pulse Oximetry 93 Oxygen Delivery Method 09/17/22 12:00 09/17/22 13:12 Pulse Rate 76 77 Respiratory Rate 23 Blood Pressure 154/81 H Pulse Oximetry 94 96 Oxygen Delivery Method Room Air MDM - Fall Lab Data 09/17/22 08:28 09/17/22 08:28 Labs: Lab Results 09/17/22 09/17/22 09/17/22 Range/Units 08:28 08:28 08:28 WBC 15.0 H (4.5-11.0) X10^3/uL RBC 4.63 (4.5-5.9) X10^6/uL Hgb 14.4 (13.5-17.5) g/dL Hct 41.7 (41-53) % MCV 90.2 (80-100) fL MCH 31.2 (26-34) PG MCHC 34.6 (30-36) % RDW 13.4 (11.6-14.8) % Plt Count 168 (150-400) X10^3/uL Neut % (Auto) 75.3 H (50-75) % Lymph % (Auto) 12.7 L (25-40) % [place] % (Auto) 11.1 (3-14) % Eos % (Auto) 0.4 L (2-4) % Baso % (Auto) 0.5 (0-2) % Neut # (Auto) 77308 H (3246-0396) /uL Lymph # (Auto) 1900 (6733-9661) /uL [place] # (Auto) 1700 H (0-900) /uL Eos # (Auto) 100 (0-450) /uL Baso # (Auto) 100 (0-100) /uL PT 13.7 H (10.1-12.7) SECONDS INR 1.2 (0.9-1.3) Sodium 137 (137-145) mmol/L Potassium 3.9 (3.4-5.1) mmol/L Chloride 103 (98-107) mmol/L Carbon Dioxide 28 (22-32) mmol/L BUN 18 (9-20) mg/dL Creatinine 1.05 (0.66-1.25) mg/dL Estimated GFR > 60 (>60) mL/min BUN/Creatinine Ratio 17.1 (6-22) Glucose 100 (80-110) mg/dL Calcium 8.3 L (8.4-10.2) mg/dL Total Bilirubin 1.3 (0.2-1.3) mg/dL AST 62 H (17-59) IU/L ALT 30 (<50) IU/L Alkaline Phosphatase 22 L (38-126) U/L Total Protein 6.8 (6.3-8.2) g/dL Albumin 4.1 (3.5-5.0) g/dL Globulin 2.7 (1.7-4.1) g/dL Albumin/Globulin Ratio 1.5 (1.0-2.8) Imaging Data CT - cervical spine: Radiologist's Impression: 1. Expected postsurgical changes from recent anterior cervical discectomy and fusion of C4 through C7 with suspected postsurgical fluid collection anterior to the left sternocleidomastoid and small amount of edema extending along the surgical site .? No acute fracture or dislocation.? No evidence for acute hardware complication. ? 2. Moderate prevertebral soft tissue swelling anterior to the fused segments with associated narrowing/mass effect upon the adjacent airway. ECG Data Attestation: I personally reviewed and interpreted this ECG as follows: (Normal sinus rhythm rate 82 beats per minute. Normal intervals. No ectopy. No acute ST T wave changes. Normal study.) Discharge Plan Departure Patient Disposition: Home Clinical Impression: Postoperative edema, Dysphagia Activity Restrictions/Additional Instructions: You have received a large dose of steroids due to the swelling around her airway. Your are improving. I am going to keep her on the steroids for 6 more days. Take the medications for package instructions. Follow up with Dr. Johnson tomorrow in his clinic. Return here as necessary. Prescriptions: New methylprednisolone [Medrol (Tanner)] 4 mg tablets,dose pack See Rx Instructions .ROUTE .COMPLEX Qty: 21 0RF Rx Instructions: orally per package directions No Action losartan 100 mg tablet 50 mg PO BID clonazepam 0.5 mg Tablet 0.25 mg PO DAILY PRN (Reason: Anxiety) Rx Instructions: administer 30 minutes before bedtime magnesium citrate,mag oxide 250 mg Capsule 500 mg PO BEDTIME acetaminophen 325 mg Tablet 650 mg PO Q6H PRN (Reason: Fever/Mild Pain (1-3)) Qty: 60 0RF docusate sodium 100 mg Capsule 100 mg PO BID Qty: 20 0RF oxycodone 5 mg Tablet 5 mg PO Q3H PRN (Reason: Pain, Moderate (4-6)) Qty: 40 0RF hydroxyzine pamoate 25 mg Capsule 25 mg PO Q4HR PRN (Reason: Nausea And Vomiting) Qty: 20 0RF Referrals: Td Rust [Primary Care Provider] - Stand Alone Forms: Patient Portal/API
[2022-09-17] MEDS: SODIUM CHLORIDE 0.9% 1,000 ML 250 ML IV (09:45)
[2022-09-17 09:55] LABS: INR 1.2 (0.9-1.3); Prothrombin Time 13.7 SECONDS (10.1-12.7)
[2022-09-17 10:00] LABS: Alanine Aminotransferase 30 IU/L (<50); Albumin 4.1 g/dL (3.5-5.0); Albumin Globulin Ratio 1.5 (1.0-2.8); Alkaline Phosphatase 22 U/L (38-126); Aspartate Aminotransferase 62 IU/L (17-59); BUN Creatinine Ratio 17.1 (6-22); Bilirubin Total 1.3 mg/dL (0.2-1.3); Blood Urea Nitrogen 18 mg/dL (9-20); Calcium 8.3 mg/dL (8.4-10.2); Carbon Dioxide 28 mmol/L (22-32); Chloride 103 mmol/L (98-107); Estimated Glomerular Filt Rate > 60 mL/min (>60); Globulin 2.7 g/dL (1.7-4.1); Glucose 100 mg/dL (80-110); HEMOLYSIS 23 (0-50); Potassium 3.9 mmol/L (3.4-5.1); Sodium 137 mmol/L (137-145); Total Protein 6.8 g/dL (6.3-8.2)
[2022-09-17 10:02] LABS: Add Manual Diff / Slide Review NO; Basophils Absolute Auto 100 /uL (0-100); Basophils Percent Auto 0.5 % (0-2); Eosinophils Absolute Auto 100 /uL (0-450); Eosinophils Percent Auto 0.4 % (2-4); Hematocrit 41.7 % (41-53); Hemoglobin 14.4 g/dL (13.5-17.5); Lymphocytes Absolute Auto 1900 /uL (1100-4500); Lymphocytes Percent Auto 12.7 % (25-40); Mean Corpuscular HGB Conc 34.6 % (30-36); Mean Corpuscular Hemoglobin 31.2 PG (26-34); Mean Corpuscular Volume 90.2 fL (80-100); Monocytes Absolute Auto 1700 /uL (0-900); Monocytes Percent Auto 11.1 % (3-14); Neutrophils Absolute Auto 11300 /uL (1500-7000); Neutrophils Percent Auto 75.3 % (50-75); Red Blood Cell Count 4.63 X10^6/uL (4.5-5.9); Red Cell Distribution Width 13.4 % (11.6-14.8)
[2022-09-17 10:13] LABS: Platelet Count 168 X10^3/uL (150-400)
[2022-09-17] MEDS: dexAMETHasone 20 MG in SODIUM CHLORIDE 0.9% 50 ML 208 MG IV (10:18)
== END 2022-09-17 13:17 | disposition home or self-care (01) ==
PROVIDERS: Emergency Provider Emergency Medicine; PCP Family Medicine
DX: R60.9 Edema, unspecified (principal); R13.10 Dysphagia, unspecified; M43.22 Fusion of spine, cervical region; W18.30XD Fall on same level, unspecified, subsequent encounter
CPT/HCPCS: 36415; 72125; 80053; 85025; 85610; 93005; 96365; 99284; J1100

== ENCOUNTER → 2023-08-15 08:18 | Outpatient (CLI) | payer MEDICARE, OTHER, SELFPAY ==
[2022-09-15 11:24] VITALS: BMI 31.3
[2023-08-15 09:04] LABS: Add Manual Diff / Slide Review NO; Basophils Absolute Auto 0 /uL (0-100); Basophils Percent Auto 0.7 % (0-2); Eosinophils Absolute Auto 200 /uL (0-450); Eosinophils Percent Auto 3.3 % (2-4); Hematocrit 44.8 % (41-53); Hemoglobin 15.2 g/dL (13.5-17.5); Lymphocytes Absolute Auto 2200 /uL (1100-4500); Lymphocytes Percent Auto 31.9 % (25-40); Mean Corpuscular HGB Conc 33.9 % (30-36); Mean Corpuscular Hemoglobin 31.1 PG (26-34); Mean Corpuscular Volume 91.7 fL (80-100); Monocytes Absolute Auto 900 /uL (0-900); Monocytes Percent Auto 12.7 % (3-14); Neutrophils Absolute Auto 3600 /uL (1500-7000); Neutrophils Percent Auto 51.4 % (50-75); Platelet Count 214 X10^3/uL (150-400); Red Blood Cell Count 4.88 X10^6/uL (4.5-5.9); Red Cell Distribution Width 13.6 % (11.6-14.8)
[2023-08-15 09:20] LABS: Alanine Aminotransferase 34 IU/L (<50); Albumin Globulin Ratio 1.3 (1.0-2.8); Alkaline Phosphatase 45 U/L (38-126); Aspartate Aminotransferase 34 IU/L (17-59); BUN Creatinine Ratio 15.8 (6-22); Bilirubin Total 0.9 mg/dL (0.2-1.3); Blood Urea Nitrogen 16 mg/dL (9-20); Calcium 8.9 mg/dL (8.4-10.2); Carbon Dioxide 26 mmol/L (22-32); Chloride 108 mmol/L (98-107); Cholesterol 187 mg/dL (140-199); Estimated Glomerular Filt Rate > 60 mL/min (>60); Glucose 95 mg/dL (80-110); HDL Cholesterol 49 mg/dL (40-60); HEMOLYSIS < 15 (0-50); LDL Cholesterol Calculated 116 mg/dL (<100); Potassium 4.6 mmol/L (3.4-5.1); Sodium 141 mmol/L (137-145); Triglycerides 111 mg/dL (35-150)
== END ==
PROVIDERS: PCP Family Medicine; Referring Provider Nurse Practitioner Family; Visit Provider Nurse Practitioner Family
DX: Z76.89 Persons encountering health services in other specified circumstances (principal); Z79.899 Other long term (current) drug therapy
CPT/HCPCS: 36415; 80053; 80061; 85025

== ENCOUNTER → 2023-09-02 08:45 | Outpatient (CLI) | payer MEDICARE, OTHER, SELFPAY ==
[2022-09-15 11:24] VITALS: BMI 31.3
[2023-09-02 10:30] LABS: Add Manual Diff / Slide Review NO; Basophils Absolute Auto 0 /uL (0-100); Basophils Percent Auto 0.5 % (0-2); Eosinophils Absolute Auto 200 /uL (0-450); Eosinophils Percent Auto 2.4 % (2-4); Hematocrit 46.3 % (41-53); Hemoglobin 15.9 g/dL (13.5-17.5); Lymphocytes Absolute Auto 2200 /uL (1100-4500); Lymphocytes Percent Auto 24.8 % (25-40); Mean Corpuscular HGB Conc 34.3 % (30-36); Mean Corpuscular Hemoglobin 31.2 PG (26-34); Mean Corpuscular Volume 90.9 fL (80-100); Monocytes Absolute Auto 900 /uL (0-900); Monocytes Percent Auto 9.8 % (3-14); Neutrophils Absolute Auto 5600 /uL (1500-7000); Neutrophils Percent Auto 62.5 % (50-75); Platelet Count 206 X10^3/uL (150-400); Red Blood Cell Count 5.09 X10^6/uL (4.5-5.9); Red Cell Distribution Width 13.3 % (11.6-14.8)
[2023-09-02 11:13] LABS: Blood Urea Nitrogen 24 mg/dL (9-20); Calcium 9.6 mg/dL (8.4-10.2); Carbon Dioxide 26 mmol/L (22-32); Chloride 105 mmol/L (98-107); Estimated Glomerular Filt Rate > 60 mL/min (>60); Glucose 86 mg/dL (80-110); HEMOLYSIS < 15 (0-50); Potassium 4.5 mmol/L (3.4-5.1); Sodium 139 mmol/L (137-145)
== END ==
LOC: LAB 08:48
PROVIDERS: PCP Nurse Practitioner Family; Referring Provider Orthopaedic Surgery Orthopaedic Surgery of the Spine; Visit Provider Orthopaedic Surgery Orthopaedic Surgery of the Spine
DX: Z01.818 Encounter for other preprocedural examination (principal); Z01.812 Encounter for preprocedural laboratory examination
CPT/HCPCS: 36415; 80048; 85025; 93005

== ENCOUNTER 2023-09-07 06:29 | Emergency (ER) | payer MEDICARE, OTHER, SELFPAY ==
[2022-09-15 11:24] VITALS: BMI 31.3
[2023-09-07 06:35] VITALS: BP 164/78; PULSE 60; RESP 16; TEMP 36.4; O2SAT 99; BMI 31.1
--- NOTE | 2023-09-07 07:49 | ED.NECK ---
HPI - Neck Pain/Injury General Chief Complaint: Neck Pain/Injury Stated Complaint: neck pain Time Seen by Provider: 09/07/23 07:12 Mode of arrival: Family Vehicle History of Present Illness HPI Narrative: 73-year-old gentleman with a history of C 456 discectomy with fusion in September of 2022, hypertension. He has an appointment scheduled with his surgeon tomorrow and comes to the emergency department requesting imaging to ?make sure Dr. Johnson's time is use most efficiently. Patient notes that he does have some pain in the left side of his neck, he is concerned that 1 of the screws has moved more than a cm per the patient. When he stands up straight the pain resolves, he has a leave at home and that helps relieve the pain as well. He has not having increased radicular symptoms and no acute neurologic changes. No fevers or other red flag issues that would require additional imaging or workup today. Related Data Home Medications Medication Instructions Recorded Confirmed losartan 100 mg tablet 50 mg PO BID 03/05/21 09/15/22 clonazepam 0.5 mg tablet 0.25 mg PO DAILY PRN Anxiety 09/10/22 09/15/22 magnesium citrate,mag oxide 250 mg 500 mg PO BEDTIME Leg cramps 09/10/22 09/15/22 capsule Previous Rx's Medication Instructions Recorded acetaminophen 325 mg tablet 650 mg (2 x 325 mg) PO Q6H PRN 09/16/22 Fever/Mild Pain (1-3) #60 tabs docusate sodium 100 mg capsule 100 mg PO BID #20 caps 09/16/22 hydroxyzine pamoate 25 mg capsule 25 mg PO Q4HR PRN Nausea And 09/16/22 Vomiting #20 caps oxycodone 5 mg tablet 5 mg PO Q3H PRN Pain, Moderate 09/16/22 (4-6) #40 tabs methylprednisolone 4 mg tablets in See Rx Instructions PO .COMPLEX 09/17/22 a dose pack (Medrol (Tanner)) #21 ea Allergies Allergy/AdvReac Type Severity Reaction Status Date / Time No Known Drug Allergies Allergy Verified 09/15/22 11:39 Review of Systems Review of Systems Narrative: Pertinent positive and negative findings as per HPI Patient History Medical History (Updated 09/07/23 @ 08:08 by Courtney Stovall MD) Cervical vertebral fusion History of COVID-19 Anxiety Skin cancer Borderline diabetic Elevated cholesterol HTN (hypertension) Neck pain Spinal stenosis Spondylosis without myelopathy or radiculopathy, cervical region Surgical History Hx of arthroscopy of right knee Hx of repair of right rotator cuff Hx of umbilical hernia repair Hx of bilateral cataract extraction Social History household members: none Smoking Status: Never smoker alcohol intake: current Smoking Status: Never smoker alcohol intake frequency: a few times a week Substance Use Type: does not use Exam Initial Vital Signs Initial Vital Signs: Vital Signs Temperature 97.6 F 09/07/23 06:35 Pulse Rate 60 09/07/23 06:35 Respiratory Rate 16 09/07/23 06:35 Blood Pressure 164/78 H 09/07/23 06:35 Pulse Oximetry 99 09/07/23 06:35 Oxygen Delivery Method Room Air 09/07/23 06:35 General: Alert appropriate in no acute distress Neck: Minor tenderness along the left paraspinous muscles into the trapezius. Relieved when he stands up straight. No erythema. Not complaining of arm weakness. Respiratory: Able to speak in full sentences, no obvious respiratory distress Skin: No obvious rashes, warm and dry Neurologic: Grossly intact no obvious asymmetries or abnormalities Psych: appropriate insight and affect, cooperative Course Vital Signs Vital signs: Vital Signs - 8 hr 09/07/23 06:35 Temperature 97.6 F Pulse Rate 60 Respiratory Rate 16 Blood Pressure 164/78 H Pulse Oximetry 99 Oxygen Delivery Method Room Air MDM - Neck Pain/Injury MDM Narrative Medical decision making narrative: 73-year-old gentleman with a cervical fusion done in September of 2022. Care is reviewed with Dr. Johnson today. He was seen by Dr. Johnson last week with imaging done. The patient is requesting that 1 of the screws be removed and he has not appointment tomorrow that looks to be a preop appointment to arrange referrals and surgical dates etcetera. At this time there is no additional imaging or workup that needs to be done and Dr. Johnson simply asks that he keep his appointment as scheduled tomorrow. This is reviewed with the patient and he is discharged Discharge Plan Departure Patient Disposition: Home Clinical Impression: Cervical pain (neck) Instructions: DI for Neck Pain Activity Restrictions/Additional Instructions: Thank you for coming in today. I appreciate your efforts to make sure that your orthopedic surgeon has all of the information that he needs prior to your visit with him tomorrow. I did talk with Dr Johnson this morning. Based on your office visit and x-rays that were done in the office last week he said that you are going to be scheduled for surgery. You have an appointment tomorrow to review findings, go over insurance issues and set up the surgical appointment. He did not recommend any additional imaging today. Please make sure you keep your appointment. Prescriptions: No Action losartan 100 mg tablet 50 mg PO BID methylprednisolone [Medrol (Tanner)] 4 mg tablets,dose pack See Rx Instructions .ROUTE .COMPLEX Qty: 21 0RF Rx Instructions: orally per package directions clonazepam 0.5 mg Tablet 0.25 mg PO DAILY PRN (Reason: Anxiety) Rx Instructions: administer 30 minutes before bedtime magnesium citrate,mag oxide 250 mg Capsule 500 mg PO BEDTIME acetaminophen 325 mg Tablet 650 mg PO Q6H PRN (Reason: Fever/Mild Pain (1-3)) Qty: 60 0RF docusate sodium 100 mg Capsule 100 mg PO BID Qty: 20 0RF oxycodone 5 mg Tablet 5 mg PO Q3H PRN (Reason: Pain, Moderate (4-6)) Qty: 40 0RF hydroxyzine pamoate 25 mg Capsule 25 mg PO Q4HR PRN (Reason: Nausea And Vomiting) Qty: 20 0RF Referrals: Cecile Goldberg, SHELLEY, [employer] [Primary Care Provider] - Stand Alone Forms: Patient Portal/API
[2023-09-07 08:18] VITALS: BP 162/80; PULSE 60; RESP 18; O2SAT 98
== END 2023-09-07 08:22 | disposition home or self-care (01) ==
PROVIDERS: Emergency Provider Emergency Medicine; PCP Nurse Practitioner Family
DX: M54.2 Cervicalgia (principal)
CPT/HCPCS: 99281; 99282

== ENCOUNTER 2023-09-21 07:15 | Inpatient (IN) | payer MEDICARE, OTHER, SELFPAY ==
[2022-09-15 11:24] VITALS: BMI 31.3
[2023-09-16 08:36] VITALS: BMI 31.6
[2023-09-21] VITALS (7 sets, daily range): BP systolic 145–161; BP diastolic 71–89; PULSE 74–92; RESP 12–16; TEMP 35.9–36.5; O2SAT 95–97; BMI 29.7
[2023-09-21] MEDS: LACTATED RINGERS 1,000 ML 42 ML IV (08:11)
--- NOTE | 2023-09-21 09:18 | PM.PREOP ---
Pre-operative Note Interval Note History & Physical reviewed/Exam performed by Physician: Yes Changes to H&P: No
--- NOTE | 2023-09-21 09:35 | P.OP_ITS ---
Operative Date/Time/Diagnoses Date of procedure: 09/21/23 Time of procedure: 09:50 Pre-op diagnosis: 1. Cervical hardware loosening 2. Neck pain Post-op diagnosis: same Procedure & Clinicians Procedure: 1. Cervical anterior deep instrumentation removal 2. Exploration of fusion Same procedure as scheduled: Yes Indications: Patient is status post C4-7 anterior cervical diskectomy and fusion several years ago and has been doing well until approximately 3 months ago. Patient has intermittent neck pain meds posture related. Patient was found to have 1 anterior C7 screw [place] backing out. On the most recent CT the screw has migrated anteriorly slightly more than the last 1 from 6 months ago. After discussing risks and benefits of treatment options and failing conservative care, patient elected proceed with surgical removal of the loosened screw. Patient has been having difficulty performing activity of daily living along with concerns of progressive migration of the screw potentially causing soft tissue injury including the esophagus. After discussing risks benefits of treatment options, patient elected proceed with surgery. Surgeon: Kayla Johnson Change Management Manager: Jenna Beavers Click Yes if Unassisted: No Anesthesia Type: General Operative Notes Closure Type: primary Specimen(s): none sent Blood products transfused: none Procedure in detail: Patient was seen in the preoperative area. Risks and benefits of the surgery was discussed with the patient. Informed consent was obtained from the patient and placed in the chart. Surgical site was marked. Patient was taken to the operative room. General anesthesia was administered. Prophylactic antibiotic was given to the patient less than 30 min before the incision was made. Patient was placed into a supine position on a radiolucent table. Patient's shoulders were taped down to allow proper C-arm imaging. Anterior cervical area was prepped and draped in a sterile fashion. Time-out was performed at this time. Using lateral C-arm imaging, the level between C6 and C7 was identified and marked on patient's neck. A oblique incision from midline towards medial border of sternocleidomastoid muscle was made on the right side. The platysma muscle was incised in line with skin incision. Metzenbaum scissor was used to develop the plane between the medial border of sternocleidomastoid d and the strap muscles medially. The carotid sheath and its contents were identified and protected behind the hand-held retractor during the entire case. The plane between the carotid sheath and strap muscles was developed with Metzenbaum scissors. Dissection was made down to the level of the anterior cervical fascia. Longus colli muscle was incised on the anterior aspect of vertebral bodies bilaterally from C6-7. The anteriorly migrated screw on the leftwas easily visible at the C7 level. The right sided C7 screw was also found to have 2 threads exposed due to anterior migration. At this time both C7 screws were found to be migrating anteriorly due to loosening. Decision at this time was to remove both screws at C7 level. The right-sided s crew was removed 1st without any difficulty. The left-sided screw due to the positioning of the injury on the left side was difficult to remove from the right-sided incision. Decision at this time was to make a 2nd incision on the patient's left side. The platysma muscle was incised in line with skin incision. Metzenbaum scissor was used to develop the plane between the medial border of sternocleidomastoid d and the strap muscles medially. The carotid sheath and its contents were identified and protected behind the hand-held retractor during the entire case. The plane between the carotid sheath and strap muscles was developed with Metzenbaum scissors. Dissection was made down to the level of the anterior cervical fascia. The left-sided C7 screw was found to have 5 exposed screws indicating significant loosening. Using the globus extend instrumentation screw hazmat tanker driver, the screws was removed from the plate without any difficulty. The C6-7 level was stressed using a [place]. There was no visible motion indicating solid fusion between the C6 and C7 level with no evidence of pseudoarthrosis. Decision at this time was not to place a new screw into the C7 vertebral body after the screw was removed. This is due to both the evidence of solid fusion as well as the bilateral backing outl the screws potentially making additional screw placement with stable purchase difficult with the risk of recurrence of the backing out of the screws. After the hardware was removed and confirmed with AP and lateral C-arm imaging, the wound was irrigated with sterile normal saline. The platysma muscle and the subcutaneous tissue was closed with 2-0 Vicryl. The skin was closed with 4-0 Monocryl and Steri-Strips. Patient tolerated the procedure well. Patient was transferred recovery room in stable condition. There were no complications. Complications: none Post-operative Condition: stable Disposition: PACU Plan for aftercare: Discharge to home
[2023-09-21] MEDS: CEFAZOLIN 2 GM/100 ML PREMIX 100 ML IV (09:55)
--- NOTE | 2023-09-21 10:13 | SUR.OPER ---
Supine, head on gel donut. Arms padded with gel pads, tucked at sides, towel roll under shoulders. Safety belt at thigh. Legs uncrossed.
[2023-09-21] MEDS: BUPIVACAINE 0.25% (PF) 30 ML, EPINEPHrine 0.15 MG INJ (10:16)
--- NOTE | 2023-09-21 11:20 | DI.RAD.S_ITS ---
PROCEDURE: XR CERVICAL SPINE 2V OR 3V INDICATIONS: SCREW REMOVAL TECHNIQUE: 2 intraoperative fluoroscopic view(s) of the cervical spine were acquired. COMPARISON: [facility], , XR CERVICAL SPINE 2V OR 3V, 09/15/2022, 13:24. FINDINGS: Intraoperative fluoroscopic views of cervical spine shows ACDF changes at C4-5 through C6-7 levels. IMPRESSION: Fluoro guidance was provided intraoperatively for surgical screw removal performed by ordering physician. Dictated by: Rocky Hannah M.D. on 09/21/2023 at 11:33 Approved by: Rocky Hannah M.D. on 09/21/2023 at 11:34
== END 2023-09-21 12:30 | disposition home or self-care (01) | DRG 517 ==
PROVIDERS: Admitting Provider Orthopaedic Surgery Orthopaedic Surgery of the Spine; PCP Nurse Practitioner Family; Referring Provider Orthopaedic Surgery Orthopaedic Surgery of the Spine; Visit Provider Orthopaedic Surgery Orthopaedic Surgery of the Spine
PROC: 0RP104Z Removal of Internal Fixation Device from Cervical Vertebral Joint, Open Approach (ICD-10-PCS; principal; 2023-09-21 09:15)
DX: T84.038A Mechanical loosening of other internal prosthetic joint, initial encounter (principal); M54.2 Cervicalgia; Z98.1 Arthrodesis status
CPT/HCPCS: 72040; 76000; J0171; J0330; J0690; J1170; J2405; J2704; J3010

== ENCOUNTER → 2024-02-25 06:55 | Outpatient (CLI) | payer MEDICARE, OTHER, SELFPAY ==
[2022-09-15 11:24] VITALS: BMI 31.3
--- NOTE | 2024-02-25 06:57 | DI.CT.S_ITS ---
PROCEDURE: CT CERVICAL SPINE WO CON INDICATIONS: SPONDYLOLISTHESIS OF CERVICAL SPINE TECHNIQUE: Noncontrast 3 mm thick sections acquired from the skull base to the T4 level. Sagittal and coronal reformats were then constructed. For radiation dose reduction, the following was used: automated exposure control, adjustment of mA and/or kV according to patient size. COMPARISON: [facility], CR, XR CERVICAL SPINE WITH FLEXION EXTENSION, 01/07/2024, 11:02. [facility], MR, MR CERVICAL SPINE WITH/WITHOUT CONTRAST, 01/15/2024, 12:34. [facility], CT, CT CERVICAL SPINE WO CON, 09/17/2022, 8:46. FINDINGS: Image quality: There is artifact associated with the metallic hardware. Artifact from the metallic hardware is reduced by metal reconstruction algorithm. Bones: No fractures or dislocations. Visualized superior ribs are intact. Postoperative hardware is seen, with and anterior fixation plate C4 through C7. Disc spacers are seen throughout the fused region. The fusion plate appears well seated. No postoperative hardware complications are seen. There is prominent degenerative change seen involving the C1-C2 interface anteriorly. At C3-C4, there is [id number] disc space narrowing. At C4-C5, there is at least moderate bilateral neural foraminal narrowing seen. No significant central canal narrowing is seen. At C5-C6, there is moderate to severe right-sided and at least moderate left-sided neural foraminal narrowing. The central canal is widely patent. At C6-C7, there is moderate to severe right-sided and at least moderate left-sided neural foraminal narrowing. No significant central canal narrowing is seen. At C7-T1, there is moderate disc space narrowing seen, with moderate right-sided neural foraminal narrowing. Soft tissues: Prevertebral soft tissues are normal in thickness. No paravertebral hematomas. No apical pneumothoraces. IMPRESSION: Unremarkable C4 through C7 anterior fixation hardware. Multiple levels of underlying degenerative change can be seen. Dictated by: Fabien Hodgson M.D. on 02/25/2024 at 12:43 Approved by: Fabien Hodgson M.D. on 02/25/2024 at 12:46
== END ==
PROVIDERS: PCP Nurse Practitioner Family; Referring Provider Neurological Surgery; Visit Provider Neurological Surgery
DX: M43.12 Spondylolisthesis, cervical region (principal); Z98.1 Arthrodesis status; M47.812 Spondylosis without myelopathy or radiculopathy, cervical region
CPT/HCPCS: 72125

== ENCOUNTER → 2024-10-22 12:26 | Outpatient (CLI) | payer MEDICARE, OTHER, SELFPAY ==
[2022-09-15 11:24] VITALS: BMI 31.3
--- NOTE | 2024-10-22 12:32 | DI.RAD.S_ITS ---
PROCEDURE: XR CERVICAL SPINE 2V OR 3V INDICATIONS: CERVICAL RADICULOPATHY TECHNIQUE: 3 view(s) of the cervical spine were acquired. COMPARISON: [facility], CR, XR CERVICAL SPINE 2V OR 3V, 09/21/2023, 10:08. [facility], CR, XR CERVICAL SPINE 2V OR 3V, 09/15/2022, 13:24. [facility], CR, XR CERVICAL SPINE WITH FLEXION EXTENSION, 01/07/2024, 11:02. FINDINGS: Bones: No fractures or dislocations to the C7 level. C5 through C7 ACDF. C4 through in T2 posterior spinal fixation. Hardware appears intact without evidence of complication. Redemonstration of degenerative changes. The lateral masses of C1 appear intact on the odontoid view. No suspicious bony lesions. Soft tissues: No prevertebral soft tissue swelling. IMPRESSION: Cervical thoracic fixation hardware as described above without evidence of hardware complication. Redemonstration of degenerative changes. Dictated by: Arpit Alvarenga M.D. on 10/23/2024 at 13:12 Approved by: Arpit Alvarenga M.D. on 10/23/2024 at 13:14
== END ==
PROVIDERS: PCP Nurse Practitioner Family; Referring Provider Nurse Practitioner Family; Visit Provider Nurse Practitioner Family
DX: M54.12 Radiculopathy, cervical region (principal); M43.12 Spondylolisthesis, cervical region; S12.9XXA Fracture of neck, unspecified, initial encounter; Z98.1 Arthrodesis status
CPT/HCPCS: 72040

== ENCOUNTER 2025-01-21 02:59 | Emergency (ER) | payer MEDICARE, OTHER, SELFPAY ==
[2022-09-15 11:24] VITALS: BMI 31.3
[2025-01-21] VITALS (16 sets, daily range): BP systolic 132–175; BP diastolic 66–101; PULSE 61–78; RESP 10–24; TEMP 36.6; O2SAT 94–100; BMI 31.4
--- NOTE | 2025-01-21 04:05 | ED.CHESTPAIN ---
HPI - Chest Pain <Traci Capps, DO - Last Filed: 01/25/25 18:59> General Chief Complaint: Chest Pain Stated Complaint: Dull pain in chest, tightness Time Seen by Provider: 01/21/25 04:05 Source: patient, RN notes reviewed and old records reviewed Mode of arrival: Ambulatory Limitations: no limitations History of Present Illness HPI narrative: 75-year-old male history of hypertension, chronic neck and back pain has had had multiple neck surgeries. Patient presents with complaint of substernal chest pressure without radiation states a couple days ago had an episode for 15 minutes that resolved on its own with some deep inhalation. States this morning woke up with similar symptoms substernal without any radiation lasted for about 2 hours has a resolved prior to my evaluation. Patient states he woke up with a his symptoms. Has not had similar symptoms in the past. He notes he does get a little tightness in his neck in his back typically but has not felt it in his anterior chest before. Denies any shortness of breath. No nausea or vomiting. No fevers or chills. No cold cough or congestion symptoms. No diaphoresis. No new abdominal, back or flank pain. He states he has chronic back pain for the past 9 months. Denies any swelling in his extremities. No issues with bowel movements or urination. States he takes losartan daily for hypertension, takes magnesium supplementation and alleve nightly. Denies aspirin or other thinners. States he has had neck surgery x3 last was 9 months prior. States no cardiac interventions or stress test in the past. Does note he has had shoulder surgery, knee surgery as well as an umbilical hernia repair. No known drug allergies. No tobacco, occasional beer, no recreational drugs. Denies any family history of cardiac or embolic disease. Does note he travels back and forth from [facility] last episode was in September. Has a primary care physician in [place]. Related Data Home Medications ?Medication ?Instructions ?Recorded ?Confirmed losartan 100 mg tablet 100 mg PO QAM 03/05/21 09/21/23 clonazepam 0.5 mg tablet 0.25 mg PO QWEEK PRN Anxiety 09/10/22 09/21/23 magnesium citrate,mag oxide 250 mg 500 mg PO BEDTIME Leg cramps 09/10/22 09/21/23 capsule naproxen sodium 220 mg capsule 220 mg PO BEDTIME 09/16/23 09/21/23 (Aleve) Previous Rx's ?Medication ?Instructions ?Recorded acetaminophen 325 mg tablet 650 mg (2 x 325 mg) PO Q6H PRN 09/16/22 Fever/Mild Pain (1-3) #60 tabs Allergies Allergy/AdvReac Type Severity Reaction Status Date / Time No Known Drug Allergies Allergy Verified 09/21/23 07:53 Review of Systems <Traci Capps DO - Last Filed: 01/25/25 18:59> Review of Systems ROS Unobtainable: All systems reviewed & are unremarkable except as noted in HPI and below Patient History <Traci Capps DO - Last Filed: 01/25/25 18:59> Medical History Cervical vertebral fusion History of COVID-19 Anxiety Skin cancer Borderline diabetic Elevated cholesterol HTN (hypertension) Neck pain Spinal stenosis Spondylosis without myelopathy or radiculopathy, cervical region Surgical History Hx of fusion of cervical spine (09/15/22) Hx of arthroscopy of right knee Hx of repair of right rotator cuff Hx of umbilical hernia repair Hx of bilateral cataract extraction Social History household members: none alcohol intake: current alcohol intake frequency: a few times a week Exam <Traci Capps DO - Last Filed: 01/25/25 18:59> Narrative Exam Narrative: GENERAL: Alert and oriented x three, elderly male in mild distress HEENT: Head normocephalic, atraumatic, EOMI, pupils reactive, face symmetric, moist mucous membranes NECK: Supple, full range of motion CARDIOVASCULAR: Regular rate and rhythm without murmurs, rubs or gallops. No JVD. No edema bilateral lower extremities. RESPIRATORY: Breath sounds equal bilaterally, no wheezes rales or rhonchi. ABDOMEN: Soft, nontender. Normoactive bowel sounds all 4 quadrants. No guarding or rebound, rigidity, no mass, no pulsatile mass or bruit. : No CVA tenderness EXTREMITIES: Normal range of motion, no clubbing or edema. Neurovascularly intact NEUROLOGICAL: Cranial nerves II through XII grossly intact. Moving all extremities SKIN: Warm, dry, no petechiae, no rashes or lesions. Initial Vital Signs Initial Vital Signs: Vital Signs Pulse Rate 62 01/21/25 04:30 Respiratory Rate 16 01/21/25 04:30 Blood Pressure 155/75 H 01/21/25 04:30 Pulse Oximetry 100 01/21/25 04:30 Oxygen Delivery Method Room Air 01/21/25 04:30 <Kosta Irving, DO - Last Filed: 01/21/25 08:13> Initial Vital Signs Initial Vital Signs: Vital Signs Pulse Rate 62 01/21/25 04:30 Respiratory Rate 16 01/21/25 04:30 Blood Pressure 155/75 H 01/21/25 04:30 Pulse Oximetry 100 01/21/25 04:30 Oxygen Delivery Method Room Air 01/21/25 04:30 Scores <Traci Capps DO - Last Filed: 01/25/25 18:59> HEART Score Heart Score history: Moderately Suspicious Heart Score EKG: Normal Heart Score Age: > or = 65 years old Heart Score risk factors: 1-2 risk factors Course <Traci Capps DO - Last Filed: 01/25/25 18:59> Orders Ordered: Discontinued Medications Aspirin (Aspirin 81 Mg Chew Tab) 324 mg PO NOW ONE Stop: 01/21/25 04:35 Last Admin: 01/21/25 05:21 Dose: 324 mg Documented By: BRANDY Heparin Sodium (Porcine) (Heparin 5,000 Unit/Ml Vial) 5,500 unit 60 unit/kg (5500 unit) IV NOW ONE Stop: 01/21/25 07:09 Last Admin: 01/21/25 07:59 Dose: Not Given Documented By: Heparin Sodium (Porcine) (Heparin 5,000 Unit/Ml Vial) 5,000 unit IV NOW ONE Stop: 01/21/25 07:58 Last Admin: 01/21/25 08:15 Dose: 5,000 unit Documented By: Heparin Sodium/Dextrose (Heparin Drip) 25,000 unit in 500 mls @ 21.228 mls/hr IV CONT CHRISTA; Protocol Last Admin: 01/21/25 08:15 Dose: 11.36 units/kg/hr, 20.1 mls/hr Documented By: Co-signed By: PIA Vital Signs Vital signs: Vital Signs - 8 hr 01/21/25 04:30 01/21/25 05:00 01/21/25 05:28 Pulse Rate 62 61 61 Respiratory Rate 16 20 15 Blood Pressure 155/75 H 163/77 H Pulse Oximetry 100 95 96 Oxygen Delivery Method Room Air 01/21/25 05:30 01/21/25 05:30 01/21/25 06:00 Pulse Rate 65 Respiratory Rate 13 Blood Pressure 165/80 H 163/79 H Pulse Oximetry 97 Oxygen Delivery Method 01/21/25 06:00 Pulse Rate 61 Respiratory Rate 10 L Blood Pressure Pulse Oximetry 94 Oxygen Delivery Method <Kosta Irving, DO - Last Filed: 01/21/25 08:13> Orders Ordered: Discontinued Medications Aspirin (Aspirin 81 Mg Chew Tab) 324 mg PO NOW ONE Stop: 01/21/25 04:35 Last Admin: 01/21/25 05:21 Dose: 324 mg Documented By: BRANDY Heparin Sodium (Porcine) (Heparin 5,000 Unit/Ml Vial) 5,500 unit 60 unit/kg (5500 unit) IV NOW ONE Stop: 01/21/25 07:09 Last Admin: 01/21/25 07:59 Dose: Not Given Documented By: Heparin Sodium (Porcine) (Heparin 5,000 Unit/Ml Vial) 5,000 unit IV NOW ONE Stop: 01/21/25 07:58 Last Admin: 01/21/25 08:15 Dose: 5,000 unit Documented By: Heparin Sodium/Dextrose (Heparin Drip) 25,000 unit in 500 mls @ 21.228 mls/hr IV CONT CHRISTA; Protocol Last Admin: 01/21/25 08:15 Dose: 11.36 units/kg/hr, 20.1 mls/hr Documented By: Co-signed By: PIA Vital Signs Vital signs: Vital Signs - 8 hr 01/21/25 04:30 01/21/25 05:00 01/21/25 05:28 Pulse Rate 62 61 61 Respiratory Rate 16 20 15 Blood Pressure 155/75 H 163/77 H Pulse Oximetry 100 95 96 Oxygen Delivery Method Room Air 01/21/25 05:30 01/21/25 05:30 01/21/25 06:00 Pulse Rate 65 Respiratory Rate 13 Blood Pressure 165/80 H 163/79 H Pulse Oximetry 97 Oxygen Delivery Method 09/06/25 06:00 Pulse Rate 61 Respiratory Rate 10 L Blood Pressure Pulse Oximetry 94 Oxygen Delivery Method MDM - Chest Pain <Traci Capps, DO - Last Filed: 01/25/25 18:59> Lab Data 01/21/25 04:24 01/21/25 04:24 Labs: Lab Results 01/21/25 01/21/25 Range/Units 04:24 06:35 WBC 8.4 (4.5-11.0) X10^3/uL RBC 5.39 (4.5-5.9) X10^6/uL Hgb 17.0 (13.5-17.5) g/dL Hct 48.9 (41-53) % MCV 90.7 (80-100) fL MCH 31.6 (26-34) PG MCHC 34.8 (30-36) % RDW 13.4 (11.6-14.8) % Plt Count 194 (150-400) X10^3/uL Neut % (Auto) 60.1 (50-75) % Lymph % (Auto) 23.8 L (25-40) % Alexander % (Auto) 11.6 (3-14) % Eos % (Auto) 3.2 (2-4) % Baso % (Auto) 1.3 (0-2) % Neut # (Auto) 5100 (6608-6622) /uL Lymph # (Auto) 2000 (8908-6215) /uL Alexander # (Auto) 1000 H (0-900) /uL Eos # (Auto) 300 (0-450) /uL Baso # (Auto) 100 (0-100) /uL PT 10.5 (9.4-12.5) SECONDS INR 0.9 (0.9-1.3) APTT 37 H (25.1-36.5) SECONDS D-Dimer < 215 (<500) ng/ml Sodium 139 (137-145) mmol/L Potassium 4.7 (3.4-5.1) mmol/L Chloride 104 (98-107) mmol/L Carbon Dioxide 25 (22-32) mmol/L BUN 19 (9-20) mg/dL Creatinine 1.12 (0.66-1.25) mg/dL Estimated GFR > 60 (>60) mL/min BUN/Creatinine Ratio 17.0 (6-22) Glucose 104 H (70-99) mg/dL Calcium 9.4 (8.4-10.2) mg/dL Magnesium 2.2 (1.6-2.3) mg/dL Total Bilirubin 0.7 (0.2-1.3) mg/dL AST 41 (17-59) IU/L ALT 31 (<50) IU/L Alkaline Phosphatase 50 (38-126) U/L Total Creatine Kinase 497 H (55-170) U/L Troponin I 0.087 H 0.236 H* (0.01-0.034) ng/mL NT-Pro-B Natriuret Pep 90 (<450) pg/mL Total Protein 7.7 (6.3-8.2) g/dL Albumin 4.7 (3.5-5.0) g/dL Globulin 3.0 (1.7-4.1) g/dL Albumin/Globulin Ratio 1.6 (1.0-2.8) Lipase 95 (23-300) U/L ECG Data Attestation: I personally reviewed and interpreted this ECG as follows: Prior ECG tracings: available for review Interpretation: Sinus rhythm rate of 61 GA 138 QRS 84 QTC of [address] elevation depression noted. Patient has prior from 09/17/2022 appears similar to today's. [facility] Narrative Medical decision making narrative: EKG sinus rhythm, no acute ST-elevation or depression Labs labs show white count 8 hemoglobin is 17 platelets of 184. INR is appropriate 0.9 PTT is 37, D-dimer is less than 215. Chemistries are appropriate, glucose is 104, total CK is 497, initial troponin is 0.087 with a BNP of 90. Repeat troponin pending. Chest x-ray chest x-ray shows no acute cardiopulmonary abnormality identified. Patient had aspirin. Chest pain has resolved. Patient signed out to Dr. Irving, awaiting 2nd troponin. But concern for unstable angina versus NSTEMI. Patient is signed out to me at shift change pending final disposition. Second EKG showed normal sinus rhythm with no STT wave changes. Troponin 1st set was 0.087 2nd set went up 0.236 with normal creatinine and H and H and plt count normal. Patient is started on heparin drip and was also given aspirin on arrival. Case discussed with hospitalist who has graciously accepted the patient for inpatient admission at [facility]. <Kosta Irving, DO - Last Filed: 01/21/25 08:13> Lab Data Labs: Lab Results 01/21/25 01/21/25 Range/Units 04:24 06:35 WBC 8.4 (4.5-11.0) X10^3/uL RBC 5.39 (4.5-5.9) X10^6/uL Hgb 17.0 (13.5-17.5) g/dL Hct 48.9 (41-53) % MCV 90.7 (80-100) fL MCH 31.6 (26-34) PG MCHC 34.8 (30-36) % RDW 13.4 (11.6-14.8) % Plt Count 194 (150-400) X10^3/uL Neut % (Auto) 60.1 (50-75) % Lymph % (Auto) 23.8 L (25-40) % Alexander % (Auto) 11.6 (3-14) % Eos % (Auto) 3.2 (2-4) % Baso % (Auto) 1.3 (0-2) % Neut # (Auto) 5100 (4094-1963) /uL Lymph # (Auto) 2000 (6406-0282) /uL Alexander # (Auto) 1000 H (0-900) /uL Eos # (Auto) 300 (0-450) /uL Baso # (Auto) 100 (0-100) /uL PT 10.5 (9.4-12.5) SECONDS INR 0.9 (0.9-1.3) APTT 37 H (25.1-36.5) SECONDS D-Dimer < 215 (<500) ng/ml Sodium 139 (137-145) mmol/L Potassium 4.7 (3.4-5.1) mmol/L Chloride 104 (98-107) mmol/L Carbon Dioxide 25 (22-32) mmol/L BUN 19 (9-20) mg/dL Creatinine 1.12 (0.66-1.25) mg/dL Estimated GFR > 60 (>60) mL/min BUN/Creatinine Ratio 17.0 (6-22) Glucose 104 H (70-99) mg/dL Calcium 9.4 (8.4-10.2) mg/dL Magnesium 2.2 (1.6-2.3) mg/dL Total Bilirubin 0.7 (0.2-1.3) mg/dL AST 41 (17-59) IU/L ALT 31 (<50) IU/L Alkaline Phosphatase 50 (38-126) U/L Total Creatine Kinase 497 H (55-170) U/L Troponin I 0.087 H 0.236 H* (0.01-0.034) ng/mL NT-Pro-B Natriuret Pep 90 (<450) pg/mL Total Protein 7.7 (6.3-8.2) g/dL Albumin 4.7 (3.5-5.0) g/dL Globulin 3.0 (1.7-4.1) g/dL Albumin/Globulin Ratio 1.6 (1.0-2.8) Lipase 95 (23-300) U/L MDM Narrative Medical decision making narrative: EKG sinus rhythm, no acute ST-elevation or depression Labs labs show white count 8 hemoglobin is 17 platelets of 184. INR is appropriate 0.9 PTT is 37, D-dimer is less than 215. Chemistries are appropriate, glucose is 104, total CK is 497, initial troponin is 0.087 with a BNP of 90. Repeat troponin pending. Chest x-ray chest x-ray shows no acute cardiopulmonary abnormality identified. Patient had aspirin. Patient signed out to Dr. Irving, awaiting 2nd troponin. But concern for unstable angina versus NSTEMI. Patient is signed out to me at shift change pending final disposition. Second EKG showed normal sinus rhythm with no STT wave changes. Troponin 1st set was 0.087 2nd set went up 0.236 with normal creatinine and H and H and plt count normal. Patient is started on heparin drip and was also given aspirin on arrival. Case discussed with hospitalist who has graciously accepted the patient for inpatient admission at [facility]. Critical Care Time <Traci Capps, DO - Last Filed: 01/25/25 18:59> Critical Care Time Critical Care Time: Yes Total Critical Care Time: 25 Attestation: The high probability of a clinically significant, sudden or life threatening deterioration of the cardiac system(s) required my full and direct attention, intervention and personal management. The aggregate critical care time was [--] minutes. This time is in addition to time spent performing reported procedures but includes the following: [x] Data Review and interpretation [x] Patient assessment and monitoring of vital signs [x] Documentation [x] Medication orders and management Discharge Plan Departure Patient Disposition: [facility] Clinical Impression: Acute non-ST elevation myocardial infarction (NSTEMI) Prescriptions: No Action losartan 100 mg tablet 100 mg PO QAM clonazepam 0.5 mg Tablet 0.25 mg PO QWEEK PRN (Reason: Anxiety) Rx Instructions: administer 30 minutes before bedtime magnesium citrate,mag oxide 250 mg Capsule 500 mg PO BEDTIME acetaminophen 325 mg Tablet 650 mg PO Q6H PRN (Reason: Fever/Mild Pain (1-3)) Qty: 60 0RF naproxen sodium [Aleve] 220 mg Capsule 220 mg PO BEDTIME Referrals: Cecile Goldberg, DNP, FILTROSE CRUSHER [Primary Care Provider, Nursing]
--- NOTE | 2025-01-21 04:27 | EKG_ITS ---
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
--- NOTE | 2025-01-21 04:34 | DI.RAD.S_ITS ---
PROCEDURE: XR CHEST 1V INDICATIONS: Chest Pain TECHNIQUE: One view of the chest was acquired. COMPARISON: None. FINDINGS: Surgical changes and devices: Cervical thoracic fixation hardware is seen. Right shoulder postoperative anchors are seen. Lungs and pleura: On this semiupright portable chest examination, no large pneumothorax or large pleural effusions are seen. No focal infiltrates are seen. Mediastinum: Mediastinal contours appear normal. Heart size is normal. Bones and chest wall: No suspicious bony lesions. Age-appropriate bony degenerative changes are seen. Overlying soft tissues appear unremarkable. IMPRESSION: Limited portable chest examination, without a significant cardiopulmonary abnormality identified. Postoperative and degenerative changes are seen. Note: No significant discrepancy from the preliminary report. Dictated by: Fabien Hodgson M.D. on 01/21/2025 at 8:32 Approved by: Fabien Hodgson M.D. on 01/21/2025 at 8:35
[2025-01-21 04:44] LABS: Add Manual Diff / Slide Review NO; Hematocrit 48.9 % (41-53); Hemoglobin 17.0 g/dL (13.5-17.5); Lymphocytes Absolute Auto 2000 /uL (1100-4500); Mean Corpuscular HGB Conc 34.8 % (30-36); Mean Corpuscular Hemoglobin 31.6 PG (26-34); Mean Corpuscular Volume 90.7 fL (80-100); Platelet Count 194 X10^3/uL (150-400)
[2025-01-21 04:54] LABS: INR 0.9 (0.9-1.3); Prothrombin Time 10.5 SECONDS (9.4-12.5)
[2025-01-21 04:56] LABS: PTT Partial Thromboplastin Tim 37 SECONDS (25.1-36.5)
[2025-01-21 04:58] LABS: Alanine Aminotransferase 31 IU/L (<50); Albumin 4.7 g/dL (3.5-5.0); Albumin Globulin Ratio 1.6 (1.0-2.8); Alkaline Phosphatase 50 U/L (38-126); Blood Urea Nitrogen 19 mg/dL (9-20); Calcium 9.4 mg/dL (8.4-10.2); Carbon Dioxide 25 mmol/L (22-32); Chloride 104 mmol/L (98-107); Creatine Kinase 497 U/L (55-170); Estimated Glomerular Filt Rate > 60 mL/min (>60); Globulin 3.0 g/dL (1.7-4.1); Glucose 104 mg/dL (70-99); HEMOLYSIS < 15 (0-50); Lipase 95 U/L (23-300); Magnesium 2.2 mg/dL (1.6-2.3); Potassium 4.7 mmol/L (3.4-5.1); Sodium 139 mmol/L (137-145); Total Protein 7.7 g/dL (6.3-8.2)
[2025-01-21 05:09] LABS: NT-proBNP (BNP-Adult 18+) 90 pg/mL (<450); Troponin I 0.087 ng/mL (0.01-0.034)
[2025-01-21] MEDS: ASPIRIN 81 MG CHEW TAB 324 MG PO (05:21)
[2025-01-21 07:10] LABS: Troponin I 0.236 ng/mL (0.01-0.034)
--- NOTE | 2025-01-21 07:24 | EKG_ITS ---
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
--- NOTE | 2025-01-21 08:11 | PC.NURSE ---
Addendum entered by Angeles Bey RN 01/21/25 08:20: Initial heparin gtt started at 85kg, 11.8 units/kg/hr Original Note: Spoke with Gordo from Pharmacy. Pt weighing >82Kg, at 88.45kg. Start initial heparin gtt at 11.8 units/kg/hr
[2025-01-21] MEDS: HEPARIN 5,000 UNIT/ML VIAL 5000 UNIT IV (08:15)
[2025-01-21] MEDS: HEPARIN DRIP 25,000 UNIT/500 ML IV.SOLN 20.1 UNIT IV (08:15)
== END 2025-01-21 10:45 | disposition short-term general hospital (02) ==
PROVIDERS: Emergency Medicine; Emergency Provider Family Medicine; PCP Nurse Practitioner Family
DX: I21.4 Non-ST elevation (NSTEMI) myocardial infarction (principal); R07.9 Chest pain, unspecified; I10 Essential (primary) hypertension
CPT/HCPCS: 36415; 71045; 80053; 82550; 83690; 83735; 83880; 84484; 85025; 85379; 85610; 85730; 93005; 96374; 99284; 99285; J1644